=== PATIENT | female | born 1960 | race Caucasian/White ===

== ENCOUNTER 2016-09-11 13:25 | Inpatient (IN) | payer BC, OTHER ==
--- NOTE | 2016-09-11 14:21 | PDOC ---
History of Present Illness - General History Source: Patient Exam Limitations: No Limitations - History of Present Illness Initial Comments: 09/11/16 14:48 The patient is a 56 year old female, with a significant past medical history of GERD, HTN, HLD, pancreatitis, cystitis, anxiety and depression, who presents to the emergency department with abdominal pain and spitting blood today. She reports that she was brushing her teeth when she noticed bright red blood and decided to come to the ED for evaluation. Upon arriving at the ED, her abdominal pain began. She describes her abdominal pain as dull, ranging from mild to moderate, diffused across her abdomen, without radiation or modifying factors. She reports that she had a bowel movement today that was normal. She notes that she didnt look to see the color of the stool. She also notes that for the past 2 weeks she has been taking Naproxen and magnesium for migraines, for which she has taken a total of 5 tablets. The patient denies chest pain, shortness of breath, headache and dizziness. Denies fever, chills, nausea, vomit, diarrhea and constipation. Denies dysuria, frequency, urgency and hematuria. Allergies: iodinated contrast Past surgical history: (x2) Social history: No alcohol, tobacco or drug use reported GI - Dr. Michael <Kamaljit Olsen - Last Filed: 09/11/16 14:47> - General History Source: Patient, Old Records Exam Limitations: No Limitations <Gabbi Luna - Last Filed: 09/11/16 16:33> - General Chief Complaint: Pain Stated Complaint: EMPLOYEE, ABD PAIN Time Seen by Provider: 09/11/16 13:47 Past History <Kamaljit Olsen - Last Filed: 09/11/16 14:47> - Past Medical History Anemia: No Asthma: No Cancer: No Cardiac Disorders: No CVA: No COPD: No CHF: No Diabetes: No GI Disorders: Yes (H/O PANCREATITIS) Disorders: Yes (CYSTITIS) HTN: Yes Hypercholesterolemia: Yes Psychiatric Problems: Yes (ANXIETY,DEPRESSION) Seizures: No - Immunization History Td Vaccination: Yes TDAP Vaccination: Yes Immunization Up to Date: Yes - Psycho/Social/Smoking Cessation Hx Anxiety: Yes Suicidal Ideation: No Smoking Status: No Smoking History: Never smoked Have you smoked in the past 12 months: No Number of Cigarettes Smoked Daily: 0 Hx Alcohol Use: No Drug/Substance Use Hx: No Substance Use Type: None Hx Substance Use Treatment: No <Gabbi Luna - Last Filed: 09/11/16 16:33> - Past Medical History Allergies/Adverse Reactions: Allergies Allergy/AdvReac Type Severity Reaction Status Date / Time Iodinated Contrast Media - Allergy Verified 09/11/16 14:31 Oral and iodine [Iodine] Allergy Itching Verified 09/11/16 14:31 Home Medications: Ambulatory Orders Lurasidone HCl [Latuda -] 30 mg PO DAILY 03/05/16 Review of Systems - Review of Systems Able to Perform ROS?: Yes Comments:: 09/11/16 14:48 GENERAL/CONSTITUTIONAL: No fever or chills. No weakness. HEAD, EYES, EARS, NOSE AND THROAT: No change in vision. No ear pain or discharge. No sore throat. CARDIOVASCULAR: No chest pain or shortness of breath RESPIRATORY: No cough, wheezing, or hemoptysis. GASTROINTESTINAL: +Abdominal pain. Spitting blood. No nausea, vomiting, diarrhea or constipation. GENITOURINARY: No dysuria, frequency, or change in urination. MUSCULOSKELETAL: No joint or muscle swelling or pain. No neck or back pain. SKIN: No rash NEUROLOGIC: No headache, vertigo, loss of consciousness, or change in strength/ sensation. ENDOCRINE: No increased thirst. No abnormal weight change HEMATOLOGIC/LYMPHATIC: No anemia, easy bleeding, or history of blood clots. ALLERGIC/IMMUNOLOGIC: No hives or skin allergy. <Kamaljit Olsen - Last Filed: 09/11/16 14:47> *Physical Exam - Vital Signs Last Vital Signs Temp Pulse Resp BP Pulse Ox 98.2 F 71 20 131/76 99 09/11/16 13:36 09/11/16 13:36 09/11/16 13:36 09/11/16 13:36 09/11/16 13:36 - Physical Exam Comments: 09/11/16 14:47 GENERAL: Awake, alert, and fully oriented, in no acute distress HEAD: No signs of trauma, normocephalic, atraumatic EYES: PERRLA, EOMI, sclera anicteric, conjunctiva clear ENT: Auricles normal inspection, hearing grossly normal, nares patent, oropharynx clear without exudates. Moist mucosa NECK: Normal ROM, supple, no lymphadenopathy, JVD, or masses LUNGS: No distress, speaks full sentences, clear to auscultation bilaterally HEART: Regular rate and rhythm, normal S1 and S2, no murmurs, rubs or gallops, peripheral pulses normal and equal bilaterally. ABDOMEN: Soft, nontender, normoactive bowel sounds. No guarding, no rebound. No masses EXTREMITIES: Normal inspection, Normal range of motion, no edema. No clubbing or cyanosis. NEUROLOGICAL: Cranial nerves II through XII grossly intact. Normal speech, normal gait, no focal sensorimotor deficits SKIN: Warm, Dry, normal turgor, no rashes or lesions noted. RECTAL EXAM: Brown stool in rectal vault. <Kamaljit Olsen - Last Filed: 09/11/16 14:47> - Vital Signs Last Vital Signs Temp Pulse Resp BP Pulse Ox 98.2 F 71 20 131/76 99 09/11/16 13:36 09/11/16 13:36 09/11/16 13:36 09/11/16 13:36 09/11/16 13:36 <Gabbi Luna - Last Filed: 09/11/16 16:33> ED Treatment Course - LABORATORY CBC & Chemistry Diagram: 09/11/16 14:20 09/11/16 14:20 <Gabbi Luna - Last Filed: 09/11/16 16:33> Medical Decision Making - Medical Decision Making 09/11/16 14:32 56-year-old female with history of GERD, pancreatitis, and migraine headaches who presents to the emergency department with complaint of spitting blood after brushing her teeth and subsequent abdominal pain. Differential diagnosis includes but is not limited to: Bleeding gingiva, gingivitis, GERD, peptic ulcer disease, anemia. Plan: 1. Labs 2. Stool guaiac 3. Urine 4. Observe and reevaluate <Gabbi Luna - Last Filed: 09/11/16 16:33> *DC/Admit/Observation/Transfer - Attestations Scribe Attestion: 09/11/16 14:48 Documentation prepared by Kamaljit Olsen, acting as medical doctor nuclear medicine for Gabbi Luna MD <Kamaljit Olsen - Last Filed: 09/11/16 14:47> - Attestations Physician Attestion: 09/11/16 14:37 I, Dr. Gabbi Luna, attest that the scribes documentation that appears above has been prepared under my direction and personally reviewed by me in its entirety. I confirmed that the note above accurately reflects all work, treatment, procedures, and medical decision-making performed by me. <Gabbi Luna - Last Filed: 09/11/16 16:33> Diagnosis at time of Disposition: Bleeding gums
[2016-09-11 14:55] LABS: BASOPHIL 0.8 % (0-2.0); EOSINOPHIL 0.3 % (0-4.5); MCH 27.2 pg (25.7-33.7); MCHC 32.2 g/dl (32.0-36.0); MEAN CELL VOLUME 84.6 fl (80-96); MEAN PLT VOLUME 7.3 fl (7.5-11.1); NEUTROPHILS 55.6 % (42.8-82.8); PLATELET COUNT 278 K/MM3 (134-434); RDW 14.4 % (11.6-15.6); WHITE BLOOD COUNT 5.6 K/mm3 (4.0-10.0)
[2016-09-11 15:00] LABS: URINE APPEARANCE CLEAR; URINE BILIRUBIN NEGATIVE (NEGATIVE); URINE BLOOD NEGATIVE (NEGATIVE); URINE COLOR COLORLESS; URINE GLUCOSE (UA) NEGATIVE (NEGATIVE); URINE KETONE NEGATIVE (NEGATIVE); URINE LEUK ESTERASE NEGATIVE (NEGATIVE); URINE NITRITE NEGATIVE (NEGATIVE); URINE PROTEIN NEGATIVE (NEGATIVE); URINE UROBILINOGEN NEGATIVE E.U./dl (0.2-1.0)
[2016-09-11 15:23] LABS: ALBUMIN 4.2 g/dl (3.4-5.0); ALK PHOS 94 U/L (45-117); ANION GAP 7 (8-16); BILIRUBIN,TOTAL 0.3 mg/dL (0.2-1.0); CALCIUM 9.4 mg/dL (8.5-10.1); CO2 31 mmol/L (21-32); CREATININE 0.7 mg/dL (0.55-1.02); GLUCOSE,RANDOM 75 mg/dL (74-106); SGOT/AST 14 U/L (15-37); SGPT/ALT 17 U/L (12-78); TOT PROT 7.6 g/dl (6.4-8.2); TROPONIN I < 0.02 ng/ml (0.00-0.05)
[2016-09-11] MEDS ORDERED: SODIUM CHLORIDE 1,000 ML IV STA (16:09)
[2016-09-11] MEDS ORDERED: FAMOTIDINE 20 MG/50 ML IVPB 50 ML IVPB ONE ×2 (16:09→16:15)
--- NOTE | 2016-09-11 19:57 | PDOC ---
*Physical Exam - Vital Signs Last Vital Signs Temp Pulse Resp BP Pulse Ox 98.2 F 71 20 131/76 99 09/11/16 13:36 09/11/16 13:36 09/11/16 13:36 09/11/16 13:36 09/11/16 13:36 ED Treatment Course - LABORATORY CBC & Chemistry Diagram: 09/11/16 14:20 09/11/16 14:20 - ADDITIONAL ORDERS Additional order review: Laboratory Results 09/11/16 09/11/16 09/11/16 14:20 14:20 14:20 Sodium Potassium Chloride Carbon Dioxide Anion Gap BUN Creatinine Creat Clearance w eGFR Random Glucose Calcium Total Bilirubin AST ALT Alkaline Phosphatase Creatine Kinase 81 Troponin I < 0.02 Total Protein Albumin Lipase 439 H Urine Color Colorless Urine Appearance Clear Urine pH 6.0 Ur Specific [place] 1.004 Urine Protein Negative Urine Glucose (UA) Negative Urine Ketones Negative Urine Blood Negative Urine Nitrite Negative Urine Bilirubin Negative Urine Urobilinogen Negative Ur Leukocyte Esterase Negative Stool Occult Blood Negative 09/11/16 14:20 Sodium 140 Potassium 3.7 Chloride 102 Carbon Dioxide 31 Anion Gap 7 L BUN 13 D Creatinine 0.7 Creat Clearance w eGFR > 60 Random Glucose 75 Calcium 9.4 Total Bilirubin 0.3 D AST 14 L ALT 17 Alkaline Phosphatase 94 Creatine Kinase Troponin I Total Protein 7.6 Albumin 4.2 Lipase Urine Color Urine Appearance Urine pH Ur Specific [place] Urine Protein Urine Glucose (UA) Urine Ketones Urine Blood Urine Nitrite Urine Bilirubin Urine Urobilinogen Ur Leukocyte Esterase Stool Occult Blood 09/11/16 14:20 RBC 4.71 MCV 84.6 MCHC 32.2 RDW 14.4 MPV 7.3 L Neutrophils % 55.6 Lymphocytes % 38.5 Monocytes % 4.8 Eosinophils % 0.3 Basophils % 0.8 - RADIOLOGY Radiology Studies Ordered: Category Date Time Status CHEST PA & LAT [RAD] Stat Radiology 09/11/16 19:55 Ordered - Medications Given in the ED: ED Medications Discontinued Medications Generic Name Dose Route Start Last Admin Trade Name Freq PRN Reason Stop Dose Admin Famotidine/Sodium Chloride 50 mls @ 100 mls/hr 09/11/16 16:09 09/11/16 16:20 Pepcid 20 Mg Premixed Ivpb - IVPB 09/11/16 16:38 100 mls/hr ONCE ONE Administration Sodium Chloride 1,000 mls @ 1,000 mls/hr 09/11/16 16:09 09/11/16 16:20 Normal Saline - IV 09/11/16 17:08 1,000 mls/hr ASDIR STA Administration Medical Decision Making - Medical Decision Making 09/11/16 19:56 pt w persistent epigastric pain -ultrasound negative for acute cholecystitis -lipase 439 -no fever spoke w pt's GI doctor, Dr Javan Michael will do MRCP in morning -pt admitted for pain mgmt, antiemetics *DC/Admit/Observation/Transfer Diagnosis at time of Disposition: Epigastric abdominal pain, Elevated lipase Vomiting Qualifiers: Vomiting type: unspecified Vomiting Intractability: unspecified Nausea presence : with nausea Qualified Code(s): R11.2 - Nausea with vomiting, unspecified - Discharge Dispostion Admit: Yes
[2016-09-11] MEDS ORDERED: ONDANSETRON 4 MG/2 ML VIAL IVPUSH ONE (19:58)
[2016-09-11] MEDS ORDERED: HYDROmorphone HCL CARPU-JECT 1 MG/1 ML DISP.SYRIN IVPUSH ONE (19:58)
[2016-09-11] MEDS ORDERED: HYDROmorphone HCL CARPU-JECT 1 MG/1 ML DISP.SYRIN ONE (20:06)
[2016-09-11] MEDS ORDERED: ONDANSETRON 4 MG/2 ML VIAL ONE (20:07)
--- NOTE | 2016-09-11 21:03 | PN ---
<Claire Miller - Last Filed: 09/11/16 21:03> Teaching Attending Note Name of Resident: Adrian Menon ATTENDING PHYSICIAN STATEMENT I saw and evaluated the patient. I reviewed the resident's note and discussed the case with the resident. I agree with the resident's findings and plan as documented. SUBJECTIVE: OBJECTIVE: ASSESSMENT AND PLAN: <Geovanna Coker - Last Filed: 09/12/16 06:24> Teaching Attending Note ATTENDING PHYSICIAN STATEMENT I saw and evaluated the patient. I reviewed the resident's note and discussed the case with the resident. I agree with the resident's findings and plan as documented. SUBJECTIVE: The patient is a 56 yo F with a PMHx GERD, HTN, HLD, pancreatitis, cystitis, anxiety and depression, who presents with abdominal pain and spitting blood. Patient noticed blood while brushing teeth. Upon arrival to the ED, patient had diffuse abdominal pain, across her abdomen. Patient also has been taking naproxen for migraines for past two weeks with a total of 5 tablets. OBJECTIVE: Physical Last Vital Signs Temp Pulse Resp BP Pulse Ox 98.2 F 71 20 131/76 99 09/11/16 13:36 09/11/16 13:36 09/11/16 13:36 09/11/16 13:36 09/11/16 13:36 GEN: NAD HEENT: NCAT, PERRL CARD: RRR, S1 S2 RESP: CTAB ABD: NT, BWS x4. + mitchell epigastric pain on palpation EXT: - CCE CBCD WBC 5.6 K/mm3 (4.0-10.0) 09/11/16 14:20 RBC 4.71 M/mm3 (3.60-5.2) 09/11/16 14:20 Hgb 12.8 GM/dL (10.7-15.3) 09/11/16 14:20 Hct 39.8 % (32.4-45.2) 09/11/16 14:20 MCV 84.6 fl (80-96) 09/11/16 14:20 MCHC 32.2 g/dl (32.0-36.0) 09/11/16 14:20 RDW 14.4 % (11.6-15.6) 09/11/16 14:20 Plt Count 278 K/MM3 (134-434) 09/11/16 14:20 MPV 7.3 fl (7.5-11.1) L 09/11/16 14:20 CMP Sodium 140 mmol/L (136-145) 09/11/16 14:20 Potassium 3.7 mmol/L (3.5-5.1) 09/11/16 14:20 Chloride 102 mmol/L (98-107) 09/11/16 14:20 Carbon Dioxide 31 mmol/L (21-32) 09/11/16 14:20 Anion Gap 7 (8-16) L 09/11/16 14:20 BUN 13 mg/dL (7-18) D 09/11/16 14:20 Creatinine 0.7 mg/dL (0.55-1.02) 09/11/16 14:20 Creat Clearance w eGFR > 60 (>60) 09/11/16 14:20 Calcium 9.4 mg/dL (8.5-10.1) 09/11/16 14:20 Total Bilirubin 0.3 mg/dL (0.2-1.0) D 09/11/16 14:20 AST 14 U/L (15-37) L 09/11/16 14:20 ALT 17 U/L (12-78) 09/11/16 14:20 Alkaline Phosphatase 94 U/L (45-117) 09/11/16 14:20 Total Protein 7.6 g/dl (6.4-8.2) 09/11/16 14:20 Albumin 4.2 g/dl (3.4-5.0) 09/11/16 14:20 Imaging Abdomen US Impression: The partially visualized pancreas demonstrates no definite abnormality. No evidence of cholelithiasis. As on a previous ultrasound study of 01/19/2014 the common bile duct is slightly dilated with a 0.8 cm diameter. Stable 1.4 cm right hepatic lobe cyst. ASSESSMENT AND PLAN: The patient is a 56 yo F with a PMHx of GERD, HTN, HLD, pancreatitis, cystitis , anxiety and depression who presents with hemoptysis and abdominal pain. The patient is being admitted for gastritis and for MRCP in the am. 1.) Gastritis -H&H stable -Educate pt on stopping naproxen -PPI -GI on consult 2.) Elevated lipase -Questionable pancreatitis -MRCP in AM -As recommended by GI--GI on case 3.) Hemoptysis - Questionable probably from aggressive teeth brushing - Trend CBC - HH stable 4.) Bipolar disorder - Continue with home med 5.) DVT PPX - SCDs Admit to Med Surg
[2016-09-11] MEDS ORDERED: ONDANSETRON 4 MG/2 ML VIAL IVPB PRN (21:57)
[2016-09-11] MEDS ORDERED: morphine CARPU-JECT 2 MG/1 ML DISP.SYRIN IVPUSH PRN (21:59)
[2016-09-11] MEDS ORDERED: PANTOPRAZOLE SODIUM 40 MG in SODIUM CHLORIDE 100 ML IVPB SCH (22:00)
[2016-09-11] MEDS ORDERED: morphine CARPU-JECT 2 MG/1 ML DISP.SYRIN IVPUSH SCH (22:00)
[2016-09-11] MEDS ORDERED: DEXTROSE 5%-NORMAL SALINE 1,000 ML IV SCH (22:00)
--- NOTE | 2016-09-11 22:00 | HP ---
CHIEF COMPLAINT: Pain abdomen HISTORY OF PRESENT ILLNESS: 56 year old female, with a significant past medical history of GERD, HTN, pancreatitis, anxiety and depression, who presents to the emergency department with abdominal pain and spitting blood today. She reports that she was brushing her teeth when she noticed bright red blood and decided to come to the ED for evaluation.Blood was mixed with mucus and as per patient was coming from stomach it was mot mixed with saliva. She reports she has history of GERD and was on omeprazole which she stopped taking couple of months ago. She describes her abdominal pain as dull, burning in nature, ranging from mild to moderate, diffused across her abdomen, without radiation, pain increases with eating. She didn't check check color of stool . She also notes that for the past 2 weeks she has been taking Naproxen and magnesium for migraines, for which she has taken a total of 5 tablets. She denies chest pain, shortness of breath, headache and dizziness. Denies fever, chills, nausea, vomit , diarrhea and constipation. Denies dysuria, frequency, urgency and hematuria. GI - Dr. Michael ER course was notable for: (1) cbc, cmp , cxr (2) iv fluid (3) lipase Recent Travel: no PAST MEDICAL HISTORY: GERD, HTN, HLD, pancreatitis, anxiety and depression, PAST SURGICAL HISTORY: (x2) Social History: Smoking: Alcohol: Drugs: Family History: Allergies Iodinated Contrast Media - Oral and Allergy (Verified 09/11/16 14:31) iodine [Iodine] Allergy (Verified 09/11/16 14:31) Itching HOME MEDICATIONS: Home Medications Medication Instructions Recorded Lurasidone HCl [Latuda -] 30 mg PO DAILY 03/05/16 REVIEW OF SYSTEMS CONSTITUTIONAL: Absent: fever, chills, diaphoresis, generalized weakness, malaise, loss of appetite, weight change HEENT: Absent: rhinorrhea, nasal congestion, throat pain, throat swelling, difficulty swallowing, mouth swelling, ear pain, eye pain, visual changes CARDIOVASCULAR: Absent: chest pain, syncope, palpitations, irregular heart rate, lightheadedness , peripheral edema RESPIRATORY: Absent: cough, shortness of breath, dyspnea with exertion, orthopnea, wheezing, stridor, hemoptysis GASTROINTESTINAL: Absent: abdominal pain, abdominal distension, nausea, vomiting, diarrhea, constipation, melena, hematochezia GENITOURINARY: Absent: dysuria, frequency, urgency, hesitancy, hematuria, flank pain, genital pain MUSCULOSKELETAL: Absent: myalgia, arthralgia, joint swelling, back pain, neck pain SKIN: Absent: rash, itching, pallor HEMATOLOGIC/IMMUNOLOGIC: Absent: easy bleeding, easy bruising, lymphadenopathy, frequent infections ENDOCRINE: Absent: unexplained weight gain, unexplained weight loss, heat intolerance, cold intolerance NEUROLOGIC: Absent: headache, focal weakness or paresthesias, dizziness, unsteady gait, seizure, mental status changes, bladder or bowel incontinence PSYCHIATRIC: Absent: anxiety, depression, suicidal or homicidal ideation, hallucinations. PHYSICAL EXAMINATION Vital Signs - 24 hr 09/11/16 13:36 Temperature 98.2 F Pulse Rate 71 Respiratory 20 Rate Blood Pressure 131/76 O2 Sat by Pulse 99 Oximetry (%) GENERAL: Awake, alert, and fully oriented, in no acute distress. HEAD: Normal with no signs of trauma. EYES: Pupils equal, round and reactive to light, extraocular movements intact, sclera anicteric, conjunctiva clear. No lid lag. EARS, NOSE, THROAT: Ears normal, nares patent, oropharynx clear without exudates. Moist mucous membranes. NECK: Normal range of motion, supple without lymphadenopathy, JVD, or masses. LUNGS: Breath sounds equal, clear to auscultation bilaterally. No wheezes, and no crackles. No accessory muscle use. HEART: Regular rate and rhythm, normal S1 and S2 without murmur, rub or gallop. ABDOMEN: Soft, mild tenderness in epigastric area tender, not distended, normoactive bowel sounds, no guarding, no rebound, no masses. No hepatomegaly or splenomegaly. MUSCULOSKELETAL: Normal range of motion at all joints. No bony deformities or tenderness. No CVA tenderness. UPPER EXTREMITIES: 2+ pulses, warm, well-perfused. No cyanosis. No clubbing. Cap refill <2 seconds. No peripheral edema. LOWER EXTREMITIES: 2+ pulses, warm, well-perfused. No calf tenderness. No peripheral edema. NEUROLOGICAL: Cranial nerves II-XII intact. Normal speech. Normal gait. PSYCHIATRIC: Cooperative. Good eye contact. Appropriate mood and affect. SKIN: Warm, dry, normal turgor, no rashes or lesions noted. Laboratory Results - last 24 hr 09/11/16 09/11/16 09/11/16 14:20 14:20 14:20 WBC 5.6 RBC 4.71 Hgb 12.8 Hct 39.8 MCV 84.6 MCHC 32.2 RDW 14.4 Plt Count 278 MPV 7.3 L Neutrophils % 55.6 Lymphocytes % 38.5 Monocytes % 4.8 Eosinophils % 0.3 Basophils % 0.8 Sodium 140 Potassium 3.7 Chloride 102 Carbon Dioxide 31 Anion Gap 7 L BUN 13 D Creatinine 0.7 Creat Clearance w eGFR > 60 Random Glucose 75 Calcium 9.4 Total Bilirubin 0.3 D AST 14 L ALT 17 Alkaline Phosphatase 94 Creatine Kinase Troponin I Total Protein 7.6 Albumin 4.2 Lipase Urine Color Urine Appearance Urine pH Ur Specific [place] Urine Protein Urine Glucose (UA) Urine Ketones Urine Blood Urine Nitrite Urine Bilirubin Urine Urobilinogen Ur Leukocyte Esterase Stool Occult Blood Negative 09/11/16 09/11/16 14:20 14:20 WBC RBC Hgb Hct MCV MCHC RDW Plt Count MPV Neutrophils % Lymphocytes % Monocytes % Eosinophils % Basophils % Sodium Potassium Chloride Carbon Dioxide Anion Gap BUN Creatinine Creat Clearance w eGFR Random Glucose Calcium Total Bilirubin AST ALT Alkaline Phosphatase Creatine Kinase 81 Troponin I < 0.02 Total Protein Albumin Lipase 439 H Urine Color Colorless Urine Appearance Clear Urine pH 6.0 Ur Specific [place] 1.004 Urine Protein Negative Urine Glucose (UA) Negative Urine Ketones Negative Urine Blood Negative Urine Nitrite Negative Urine Bilirubin Negative Urine Urobilinogen Negative Ur Leukocyte Esterase Negative Stool Occult Blood Current Medications Generic Name Dose Route Start Last Admin Trade Name Freq PRN Reason Stop Dose Admin Sodium Chloride 1,000 mls @ 83 mls/hr 09/11/16 22:15 Normal Saline - IV ASDIR [facility] Lurasidone HCl 30 mg 09/12/16 10:00 Latuda - PO DAILY [facility] Morphine Sulfate 2 mg 09/11/16 21:59 Morphine Injection - IVPUSH Q6H PRN PAIN Ondansetron HCl 4 mg 09/11/16 21:57 Zofran Injection IVPB Q4H PRN NAUSEA AND/OR VOMITING Pantoprazole Sodium 40 mg 09/11/16 22:15 Protonix 40mg Ivpb (Pre-Docked) IVPB BID [facility] ASSESSMENT/PLAN: 56 year old female, with a significant past medical history of GERD, HTN, HLD, pancreatitis, cystitis, anxiety and depression, who presents to the emergency department with abdominal pain. Pain abdomen: gastritis vs early pancreatitis ( less likely from pancreatitis ) NPO IV fluid MNS at 83 ml/hr IV rotonix 40 mg iv bid Zofarn Iv prn for nausea Morphine IV prn for pain monitor vitals Gastro consult Follow MRCP GERD on IV protonix BID HTN: controlled not on medication Depression continue home med latuda 30 mg daily Fluid : NS 83 ml/hr electrolyte: follow in am nutrition : NPO for now Dvt pro : scd b/l gi pro : on protonix Dispo: admit med surg Visit type - Emergency Visit Emergency Visit: Yes ED Registration Date: 09/11/16 Care time: The patient presented to the Emergency Department on the above date and was hospitalized for further evaluation of their emergent condition. - New Patient This patient is new to me today: Yes Date on this admission: 09/12/16 - Critical Care Critical Care patient: No
[2016-09-11] MEDS ORDERED: PANTOPRAZOLE SODIUM 40 MG VIAL ONE (22:09)
[2016-09-11] MEDS: PANTOPRAZOLE SODIUM 40 MG/100 ML PRE-DOCKED IVPB SCH (22:20)
[2016-09-11] MEDS: SODIUM CHLORIDE 1,000 ML IV SCH ×2 (22:20→23:11)
--- NOTE | 2016-09-11 23:09 | MSN ---
Admitting History and Physical - Admission Chief Complaint: bleeding from mouth and abdominal pain History of Present Illness: 56 yo female with pmhx of GERD, HTN, HLD, pancreatits, hiatal hernia, cystits, anxiety and depression presnts with blood coming from her mouth she noticed while she was brushing her teeth. around the same time she began to experience abdominal pain. She states induced vomiting one time to see if the blood was coming from the stomach. She pain is described as intermittent and located primarily in her epigastric region but complains of diffuse pain. She has never had this before. The pain does not radiate anywhere. Eating food does not make the pain worse or better. She has not noticed a change in her bowels but says she is usually constipated. She has been taking naproxen for migraines but says she only takes about 5 pills a month. She says she was taking omeprazole but stopped 6 months ago because she says the side effects worried her. She denies headache, changes in vision, weakness, dark stools, frequency with urination. 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 Cardiovascular: Yes: HTN, Hyperlipdemia Gastrointestinal: Yes: GERD, Pancreatitis Renal/: Yes: Other (cystitis) Psych: Yes: Anxiety, Depression - Past Surgical History Past Surgical History: Yes: (X2) - Smoking History Smoking history: Never smoked Have you smoked in the past 12 months: No Aproximately how many cigarettes per day: 0 - Alcohol/Substance Use Hx Alcohol Use: No Home Medications - Allergies Allergies/Adverse Reactions: Allergies Allergy/AdvReac Type Severity Reaction Status Date / Time Iodinated Contrast Media - Allergy Verified 09/11/16 14:31 Oral and iodine [Iodine] Allergy Itching Verified 09/11/16 14:31 - Home Medications Home Medications: Ambulatory Orders Lurasidone HCl [Latuda -] 30 mg PO DAILY 03/05/16 Review of Systems - Review of Systems Constitutional: reports: No Symptoms Eyes: reports: No Symptoms HENT: reports: No Symptoms Cardiovascular: reports: No Symptoms Gastrointestinal: reports: Abdominal Pain Genitourinary: reports: No Symptoms Musculoskeletal: reports: Back Pain Neurological: reports: No Symptoms Physical Examination Vital Signs: Vital Signs Temperature 97.9 F 09/11/16 22:48 Pulse Rate 65 09/11/16 22:48 Respiratory Rate 20 09/11/16 22:48 Blood Pressure 147/66 09/11/16 22:48 O2 Sat by Pulse Oximetry (%) 100 09/11/16 22:03 Constitutional: Yes: Well Nourished, No Distress, Calm Eyes: Yes: WNL, Conjunctiva Clear, EOM Intact HENT: Yes: Atraumatic Cardiovascular: Yes: WNL, Regular Rate and Rhythm, S1, S2 Respiratory: Yes: WNL, Regular, CTA Bilaterally Gastrointestinal: Yes: Normal Bowel Sounds, Soft, Tenderness, Tenderness, Epigastrium Musculoskeletal: Yes: Back Pain Extremities: Yes: WNL Edema: No Neurological: Yes: WNL, Alert, Oriented Imaging - Results Chest X-ray: Pending Ultrasound: Report Reviewed (dilated CBD and hepatic cyst but both unchanged from previous imaging studies-no acute pathology) EKG: Image Reviewed (sinus bradycardia) Assessment/Plan 56 yo female with pmhx of GERD, HTN, HLD, pancreatits, hiatal hernia, cystits, anxiety and depression presnts with acute gastritis acute gastritis -NPO -NS -GI consulted-mcrp tomorrow -morphine for pain management -protonix -H&H stable -zofran for nausea pancreatitis -lipase 423 -monitor symptoms -protonix -zofran for nausea HTN -not on home meds depression -continue home meds 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
[2016-09-12 00:05] VITALS: BMI 24.5
[2016-09-12 06:54] LABS: BASOPHIL 0.9 % (0-2.0); EOSINOPHIL 0.7 % (0-4.5); MCHC 32.2 g/dl (32.0-36.0); MEAN CELL VOLUME 83.8 fl (80-96); MEAN PLT VOLUME 7.4 fl (7.5-11.1); NEUTROPHILS 48.9 % (42.8-82.8); PLATELET COUNT 252 K/MM3 (134-434); RDW 14.5 % (11.6-15.6); WHITE BLOOD COUNT 4.9 K/mm3 (4.0-10.0)
[2016-09-12 07:26] LABS: ALBUMIN 3.6 g/dl (3.4-5.0); ALK PHOS 81 U/L (45-117); ANION GAP 9 (8-16); BILIRUBIN,TOTAL 0.4 mg/dL (0.2-1.0); CALCIUM 8.7 mg/dL (8.5-10.1); CO2 27 mmol/L (21-32); CREATININE 0.6 mg/dL (0.55-1.02); GLUCOSE,RANDOM 66 mg/dL (74-106); MAGNESIUM 2.2 mg/dL (1.8-2.4); PHOSPHOROUS 3.9 mg/dL (2.5-4.9); SGOT/AST 12 U/L (15-37); SGPT/ALT 14 U/L (12-78); TOT PROT 6.3 g/dl (6.4-8.2)
[2016-09-12] MEDS: PANTOPRAZOLE SODIUM 40 MG/100 ML PRE-DOCKED IVPB SCH (09:09)
[2016-09-12] MEDS: SODIUM CHLORIDE 1,000 ML IV SCH (11:21)
[2016-09-12] MEDS: LURASIDONE HCL 20 MG TABLET PO SCH (11:39)
--- NOTE | 2016-09-12 14:14 | EKG ---
Test Reason : Blood Pressure : / mmHG Vent. Rate : 056 BPM Atrial Rate : 056 BPM P-R Int : 140 ms QRS Dur : 086 ms QT Int : 446 ms P-R-T Axes : 063 045 038 degrees QTc Int : 430 ms SINUS BRADYCARDIA POSSIBLE LEFT ATRIAL ENLARGEMENT BORDERLINE ECG WHEN COMPARED WITH ECG OF 16-NOV-2013 04:42, T WAVE INVERSION NOW EVIDENT IN ANTERIOR LEADS Confirmed by DIANE PADILLA, MARYSOL ([id number]) on 09/12/2016 2:13:36 PM Referred By: Confirmed By:MARYSOL CONTRERAS MD
--- NOTE | 2016-09-12 14:29 | PN ---
Teaching Attending Note Name of Resident: Kamari Desai ATTENDING PHYSICIAN STATEMENT I saw and evaluated the patient. I reviewed the resident's note and discussed the case with the resident. I agree with the resident's findings and plan as documented. SUBJECTIVE: OBJECTIVE: ASSESSMENT AND PLAN: 56 year old female, with a significant past medical history of GERD, HTN, pancreatitis, anxiety and depression admitted for possible upper GI bleed -pt states she vomitted small amount of blood but has had no further bleeding since -Hb is stable -follow up consult by her private GI attending -unsure as to why MRCP was ordered but will follow up
--- NOTE | 2016-09-12 15:43 | PN ---
Physical Exam: SUBJECTIVE: Patient seen and examined at bed side. pateitn feeling better with mild epigastric pain. patient reports pain was 7/10 two day sago and no wis 4/ 10. patient reports regurgitating food the day prior. noticed small amount of blood in mouth, then induced vomit and more blood 1/4 cup full bright red. denies any bleeding gums or oral lesions. denies, fevers, chills, nausea, vomiting, cp, sob. patient has no History of HTn, DM and not on medications. nurse called, patient hypoglycemia symptomatic, having had blood glucose 66 morning labs, patient symptoms resolved after drinking Josefa charles. OBJECTIVE: Vital Signs Period Temp Pulse Resp BP Sys/Medrano Pulse Ox Last 24 Hr 97.9 F-98.7 F 56-65 18-22 107-147/41-75 98-100 GENERAL: The patient is awake, alert, and fully oriented, in no acute distress. HEAD: Normal with no signs of trauma. EYES: extraocular movements intact, sclera anicteric, conjunctiva clear. No ptosis. ENT: Ears normal, nares patent, oropharynx clear without exudates or lesions or blood, moist mucous membranes. NECK: Trachea midline, full range of motion, supple. LUNGS: Breath sounds equal, clear to auscultation bilaterally, no wheezes, no crackles, no accessory muscle use. HEART: Regular rate and rhythm, S1, S2 without murmur, rub or gallop. ABDOMEN: Soft, mild tender epigastric area, nondistended, normoactive bowel sounds, no guarding, no rebound, no hepatosplenomegaly, no masses. EXTREMITIES: 2+ pulses, warm, well-perfused, no edema. NEUROLOGICAL: Normal speech, gait not observed. PSYCH: Normal mood, normal affect. SKIN: Warm, dry, normal turgor, no rashes or lesions noted Laboratory Results - last 24 hr 09/12/16 09/12/16 05:55 05:55 WBC 4.9 RBC 4.31 Hgb 11.6 Hct 36.1 MCV 83.8 MCHC 32.2 RDW 14.5 Plt Count 252 MPV 7.4 L Neutrophils % 48.9 Lymphocytes % 43.9 H Monocytes % 5.6 Eosinophils % 0.7 D Basophils % 0.9 Sodium 142 Potassium 4.0 Chloride 106 Carbon Dioxide 27 Anion Gap 9 BUN 10 D Creatinine 0.6 Creat Clearance w eGFR > 60 Random Glucose 66 L Calcium 8.7 Phosphorus 3.9 Magnesium 2.2 Total Bilirubin 0.4 D AST 12 L ALT 14 Alkaline Phosphatase 81 Total Protein 6.3 L Albumin 3.6 Active Medications Generic Name Dose Route Start Last Admin Trade Name Freq PRN Reason Stop Dose Admin Sodium Chloride 1,000 mls @ 83 mls/hr 09/11/16 22:15 09/12/16 11:21 Normal Saline - IV 83 mls/hr ASDIR GERI Administration Lurasidone HCl 30 mg 09/12/16 10:00 09/12/16 11:39 Latuda - PO Not Given DAILY GERI Morphine Sulfate 2 mg 09/11/16 21:59 Morphine Injection - IVPUSH Q6H PRN PAIN Ondansetron HCl 4 mg 09/11/16 21:57 Zofran Injection IVPB Q4H PRN NAUSEA AND/OR VOMITING Pantoprazole Sodium 40 mg 09/11/16 22:15 09/12/16 09:09 Protonix 40mg Ivpb (Pre-Docked) IVPB 40 mg BID GERI Administration ASSESSMENT/PLAN: Pain abdomen: gastritis vs early pancreatitis ( less likely from pancreatitis ) , -one episode induced vomiting small amount of blood but has had no further bleeding since, she reports having blood in mouth prior to inducing vomit. -Hb is stable IV fluid MNS at 83 ml/hr IV protonix 40 mg iv bid Zofarn Iv prn for nausea Morphine IV prn for pain monitor vitals GI consult- private patient Follow MRCP HYpoglycemia: no documented diabetic and is not on diabetes medications. -will check HBA1c * Obtain blood glucose concentration as soon as possible when patient is symptomatic -If the glucose is low (<55 mg/dL) and the patient is a not a diabetic, draw blood for glucose, insulin, C-peptide, and an oral hypoglycemic agent screen and then treat, * Do not delay treatment if symptomatic hypoglycemia is suspected but rapid blood glucose measurement is not available or blood for diagnostic studies cannot be collected. * Give oral sugar drink or oral glucose. GERD on IV protonix BID Depression continue home med latuda 30 mg daily Fluid : NS 83 ml/hr electrolyte: follow in am nutrition : Clear liquids Dvt pro : scd b/l gi pro : on protonix Dispo: admit med surg Visit type - Emergency Visit Emergency Visit: Yes ED Registration Date: 09/11/16 Care time: The patient presented to the Emergency Department on the above date and was hospitalized for further evaluation of their emergent condition. - New Patient This patient is new to me today: Yes Date on this admission: 09/11/16 - Critical Care Critical Care patient: No
--- NOTE | 2016-09-12 18:41 | CON.GI ---
Consult Consult Specialty:: Gastroenterology Referred by:: hospitalist - History of Present Illness Chief Complaint: abdominal pain and elevated lipase History of Present Illness: Amanda is a 56-year-old female who is a long-standing patient of mine. Last time I saw her in the office was a few years ago. She also has a history of anxiety and depression. She is a history of nonerosive reflux disease. She was taking omeprazole up to a few months ago. In the morning she was brushing her teeth and noticed some blood in her mouth period. She thought it was from her stomach so she came to the emergency room. She also thought it was related to some epigastric pain that she was having. She was recently been taking Naprosyn or other NSAIDs.. In the emergency room laboratory testing was done to reveal no anemia. And also mildly elevated lipase. A sonogram suggested an abnormal gallbladder. Her liver functions were normal. Her bowel movements were normal without evidence of melena or rectal bleeding. This morning her abdomen is without tenderness. Currently she is n.p.o. and we are waiting for a MRCP MRI to evaluate her pancreas. 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: Yes: Migraine Cardio/Vascular: Yes: HTN, Hyperlipdemia Gastrointestinal: Yes: GERD, Pancreatitis Renal/: Yes: Other (cystitis) Psych: Yes: Anxiety, Depression - Past Surgical History Past Surgical History: Yes: Colonoscopy, (X2), Upper Endoscopy - Alcohol/Substance Use Hx Alcohol Use: No - Smoking History Smoking history: Never smoked Have you smoked in the past 12 months: No Aproximately how many cigarettes per day: 0 Home Medications - Allergies Allergies/Adverse Reactions: Allergies Allergy/AdvReac Type Severity Reaction Status Date / Time Iodinated Contrast Media - Allergy Verified 09/11/16 14:31 Oral and iodine [Iodine] Allergy Itching Verified 09/11/16 14:31 - Home Medications Home Medications: Ambulatory Orders Lurasidone HCl [Latuda -] 30 mg PO DAILY 03/05/16 Family Disease History - Family Disease History Family History: Unremarkable Review of Systems - Review of Systems Constitutional: reports: No Symptoms Eyes: reports: No Symptoms HENT: reports: Other ( Blood in mouth) Neck: reports: No Symptoms Cardiovascular: reports: No Symptoms Respiratory: reports: No Symptoms Gastrointestinal: reports: Abdominal Pain, Other ( epigastric pain) Genitourinary: reports: No Symptoms Musculoskeletal: reports: No Symptoms Integumentary: reports: No Symptoms Neurological: reports: No Symptoms Endocrine: reports: No Symptoms Hematology/Lymphatic: reports: No Symptoms Psychiatric: reports: No Symptoms Physical Exam-GI Vital Signs: Vital Signs Temperature 98.5 F 09/12/16 14:10 Pulse Rate 65 09/12/16 14:10 Respiratory Rate 18 09/12/16 14:10 Blood Pressure 113/61 09/12/16 14:10 O2 Sat by Pulse Oximetry (%) 98 09/12/16 09:00 Constitutional: Yes: Well Nourished, No Distress, Calm Eyes: Yes: Conjunctiva Clear HENT: Yes: Normocephalic Neck: Yes: Trachea Midline Cardiovascular: Yes: Regular Rate and Rhythm Respiratory: Yes: CTA Bilaterally ...Auscultate: Yes: Normoactive Bowel Sounds ...Palpate: Yes: Soft ...Rectal Exam: Yes: Guaiac Negative Extremities: Yes: WNL Neurological: Yes: WNL Psychiatric: Yes: WNL Labs: CBC, BMP 09/12/16 05:55 09/12/16 05:55 Imaging - Results Ultrasound: Image Reviewed MRI: Image Reviewed Problem List - Problems (1) Elevated lipase Assessment/Plan: I did not see current etiology for elevation in her lipase. This may be a low- grade pancreatitis for whatever reason. Imaging studies however show a normal pancreatic gland. The pancreatic duct is also normal. There is no history of drinking is no history of gallstones. Would advance her diet if tolerated can she can be discharged. Code(s): R74.8 - ABNORMAL LEVELS OF OTHER SERUM ENZYMES (2) Abnormal MRI, liver Assessment/Plan: The MRI shows an abnormal common hepatic duct which was read as probable artifact. Her lab work is normal. Her liver tests are normal. She has no family history of liver disease or bile duct cancers. Further workup can be done as an outpatient. That would include repeat MRI of the liver in 3 months or a ERCP. I will send off a CA-19-9. Code(s): R93.2 - ABNORMAL FINDINGS ON DX IMAGING OF LIVER AND BILIARY TRACT (3) Abdominal pain Assessment/Plan: I believe her abdominal pain was related to the NSAIDs. She should be placed back on her proton pump inhibitor for 3 weeks and then these should be discontinued she should avoid using NSAIDs in the future. She should make a follow-up appointment my office for a repeat upper endoscopy. The patient tolerates diet without abdominal pain nausea vomiting there is no GI objection to discharging the patient today. Code(s): R10.9 - UNSPECIFIED ABDOMINAL PAIN (4) Anxiety and depression Code(s): F41.8 - OTHER SPECIFIED ANXIETY DISORDERS (5) Bleeding gums Code(s): K06.8 - OTH DISRD OF GINGIVA AND EDENTULOUS ALVEOLAR RIDGE
[2016-09-13] MEDS: SODIUM CHLORIDE 1,000 ML IV SCH (04:48)
--- NOTE | 2016-09-13 06:39 | DS ---
Physical Exam: ATTENDING PHYSICIAN STATEMENT I saw and evaluated the patient. I reviewed the resident's note and discussed the case with the resident. I agree with the resident's findings and plan as documented. SUBJECTIVE: seen and evaluated at the bedside OBJECTIVE: mild mid-epigastric pain ASSESSMENT AND PLAN: 56 year old female, with a significant past medical history of GERD, HTN, pancreatitis, anxiety and depression admitted for possible upper GI bleed -pt states she vomitted small amount of blood but has had no further bleeding since -Hb is stable -consult by her private GI attending appreciated; for follow up in his office as an outpatient <Curt Blair - Last Filed: 09/13/16 08:49> Physical Exam: SUBJECTIVE: Patient seen and examined at bed side. no current epigastric or QUQ pain. patient has chronic suprapubic pain that is being followed and treated for interstitial cystitis. no more episodes of blood in mouth. patient feeling well. denies fever, chills, N/V/D/C. passing gas, voiding. cleared by GI, if tolerates diet can be discharged. OBJECTIVE: Vital Signs Period Temp Pulse Resp BP Sys/Medrano Pulse Ox Last 24 Hr 98.4 F-98.7 F 59-65 18-20 107-130/41-71 97-98 PHYSICAL EXAM GENERAL: The patient is awake, alert, and fully oriented, in no acute distress. HEAD: Normal with no signs of trauma. EYES: extraocular movements intact, sclera anicteric, conjunctiva clear. No ptosis. ENT: Ears normal, nares patent, oropharynx clear without exudates or lesions or blood, moist mucous membranes. NECK: Trachea midline, full range of motion, supple. LUNGS: Breath sounds equal, clear to auscultation bilaterally, no wheezes, no crackles, no accessory muscle use. HEART: Regular rate and rhythm, S1, S2 without murmur, rub or gallop. ABDOMEN: Soft, non tender, nondistended, normoactive bowel sounds, no guarding, no rebound, no hepatosplenomegaly, no masses. EXTREMITIES: 2+ pulses, warm, well-perfused, no edema. NEUROLOGICAL: Normal speech, gait not observed. PSYCH: Normal mood, normal affect. SKIN: Warm, dry, normal turgor, no rashes or lesions noted LABS Laboratory Results - last 24 hr 09/12/16 09/12/16 09/12/16 05:55 05:55 16:46 WBC 4.9 RBC 4.31 Hgb 11.6 Hct 36.1 MCV 83.8 MCHC 32.2 RDW 14.5 Plt Count 252 MPV 7.4 L Neutrophils % 48.9 Lymphocytes % 43.9 H Monocytes % 5.6 Eosinophils % 0.7 D Basophils % 0.9 Sodium 142 Potassium 4.0 Chloride 106 Carbon Dioxide 27 Anion Gap 9 BUN 10 D Creatinine 0.6 Creat Clearance w eGFR > 60 POC Glucometer 63 Random Glucose 66 L Calcium 8.7 Phosphorus 3.9 Magnesium 2.2 Total Bilirubin 0.4 D AST 12 L ALT 14 Alkaline Phosphatase 81 Total Protein 6.3 L Albumin 3.6 09/13/16 09/13/16 00:34 01:19 WBC RBC Hgb Hct MCV MCHC RDW Plt Count MPV Neutrophils % Lymphocytes % Monocytes % Eosinophils % Basophils % Sodium Potassium Chloride Carbon Dioxide Anion Gap BUN Creatinine Creat Clearance w eGFR POC Glucometer 65 94 Random Glucose Calcium Phosphorus Magnesium Total Bilirubin AST ALT Alkaline Phosphatase Total Protein Albumin HOSPITAL COURSE: Date of Admission:09/11/16 Date of Discharge: 09/13/16 56 year old female, with a significant past medical history of GERD, HTN, pancreatitis, anxiety and depression, who presents to the emergency department with abdominal pain and spitting blood today. She reports that she was brushing her teeth when she noticed bright red blood and decided to come to the ED for evaluation.Blood was mixed with mucus and as per patient was coming from stomach it was mot mixed with saliva. She reports she has history of GERD and was on omeprazole which she stopped taking couple of months ago. She describes her abdominal pain as dull, burning in nature, ranging from mild to moderate, diffused across her abdomen, without radiation, pain increases with eating. She didn't check check color of stool . She also notes that for the past 2 weeks she has been taking Naproxen and magnesium for migraines, for which she has taken a total of 5 tablets. She denies chest pain, shortness of breath, headache and dizziness. Denies fever, chills, nausea, vomit, diarrhea and constipation. Denies dysuria, frequency, urgency and hematuria. GI - Dr. Fernanda reynaga had mild elevation in lipase in 439,not see current etiology for elevation in her lipase. This may be a low-grade pancreatitis for whatever reason. Imaging studies however show a normal pancreatic gland. The pancreatic duct is also normal. There is no history of drinking is no history of gallstones. The MRI shows an abnormal common hepatic duct which was read as probable artifact. Her lab work is normal. Her liver tests are normal. She has no family history of liver disease or bile duct cancers. Further workup can be done as an outpatient. That would include repeat MRI of the liver in 3 months or a ERCP. I will send off a CA-19-9. Abdominal pain probably related to related to the NSAIDs. we placed back on her proton pump inhibitor for 3 weeks and then these should be discontinued. instructed to avoid using NSAIDs in the future. instructed her follow-up appointment with GI office for a repeat upper endoscopy. hypoglycemia while patient was on NPO. instructed her on the awareness of symptoms and the treatment. Bleeding gums, unsepciefied possible secondary to trauma to tooth brush Patient stable discharged home, vitals stable., currently no abd pain , no sign of bleeding. Minutes to complete discharge: 35 <Kamari Desai - Last Filed: 09/13/16 10:41> Discharge Summary Current Active Problems Abnormal MRI, liver (Acute) Anxiety disorder (Acute) Elevated lipase (Acute) - Home Medications Comprehensive Discharge Medication List: Ambulatory Orders Lurasidone HCl [Latuda -] 30 mg PO DAILY 03/05/16 <Curt Blair - Last Filed: 09/13/16 08:49> Reason For Visit: EPIGASTRIC PAIN, INCREASED SERUM LIAPSE LEVEL, VOM Current Active Problems Abnormal MRI, liver (Acute) Elevated lipase (Acute) Epigastric abdominal pain (Acute) Vomiting (Acute) - Home Medications Comprehensive Discharge Medication List: Ambulatory Orders Lurasidone HCl [Latuda -] 30 mg PO DAILY 03/05/16 <Kamari Desai - Last Filed: 09/13/16 10:41> Condition: Stable - Instructions Diet, Activity, Other Instructions: Please call Respiratory Department EXT. [phone] to Schedule Sleep Consultation appointment for Patient. You are being discharged home. Please call and follow up with your primary care provider in one week to assess your health. Please call and follow up with GI DR. da silva in 2 week. Please avoid taking NSAIDs, smoking, alcohol. please take proton pump inhibitor for 3 weeks and then discontinue. You should make a follow-up appointment in dr hussein office for a repeat upper endoscopy. Please take your medications as directed. Please reports to the ER or the nearest ER if you have any persistent and worsening symptoms, chest pain, palpitation, fevers, chills, night sweats, Nausea, Vomiting, severe headache dizziness or loss of consciousness. Disposition: HOME This patient is new to me today: Yes Date on this admission: 09/13/16 Emergency Visit: No Critical Care patient: No - Discharge Referral Referred to [facility] No <Kamari Desai - Last Filed: 09/13/16 10:41>
[2016-09-13] MEDS ORDERED: PT OWN MED DRAWER 7, Y5N ONE (09:43)
[2016-09-13] MEDS ORDERED: PANTOPRAZOLE 40 MG TABLET (FP) PO SCH (10:00)
[2016-09-13] MEDS: LURASIDONE HCL 20 MG TABLET PO SCH (10:17)
[2016-09-13 10:21] VITALS: BP 130/73; PULSE 63; TEMP 98.4
== END 2016-09-13 11:45 | disposition home or self-care (01) | DRG 392 ==
LOC: JER 13:25 → J5S 20:13
PROVIDERS: ADMIT Internal Medicine; ATTEND Internal Medicine
DX: K29.00 Acute gastritis without bleeding (principal); K21.9 Gastro-esophageal reflux disease without esophagitis; I10 Essential (primary) hypertension; E78.5 Hyperlipidemia, unspecified; F41.9 Anxiety disorder, unspecified; F32.9 Major depressive disorder, single episode, unspecified; G43.909 Migraine, unspecified, not intractable, without status migrainosus; K44.9 Diaphragmatic hernia without obstruction or gangrene; E16.2 Hypoglycemia, unspecified; R93.2 Abnormal findings on diagnostic imaging of liver and biliary tract; K06.8 Other specified disorders of gingiva and edentulous alveolar ridge; T39.395A Adverse effect of other nonsteroidal anti-inflammatory drugs [NSAID], initial encounter
CPT/HCPCS: 36415; 71020-TC; 74181-TC; 76700-TC; 80053; 81003; 82272; 82550; 83690; 83735; 84100; 84484; 85025; 86301; 93005; 93010; 99282-25

== ENCOUNTER 2017-06-13 15:56 | Emergency (ER) | payer OTHER, BC ==
[2017-06-13 16:11] VITALS: BP 147/87; PULSE 74; TEMP 98.2; BMI 26.3
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
[2017-06-13] MEDS ORDERED: KETOROLAC TROMETHAMINE 60 MG/2 ML VIAL IM ONE (18:03)
[2017-06-13] MEDS ORDERED: KETOROLAC TROMETHAMINE 60 MG/2 ML VIAL ONE (18:14)
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
[2017-06-13 18:17] LABS: URINE APPEARANCE CLEAR; URINE BILIRUBIN NEGATIVE (NEGATIVE); URINE BLOOD 1+ (NEGATIVE); URINE COLOR LTYELLOW; URINE GLUCOSE (UA) NEGATIVE (NEGATIVE); URINE KETONE NEGATIVE (NEGATIVE); URINE NITRITE NEGATIVE (NEGATIVE); URINE PROTEIN NEGATIVE (NEGATIVE); URINE UROBILINOGEN NEGATIVE mg/dL (0.2-1.0)
[2017-06-13 20:49] LABS: URINE MUCUS RARE; URINE RBC 7 /hpf (0-3); URINE WBC 8 /hpf (3-5)
[2017-06-14 12:54] LABS: URINE LEUK ESTERASE 1+ (NEGATIVE)
== END 2017-06-13 19:25 | disposition home or self-care (01) ==
LOC: JERFT 15:56
PROC: 3E0233Z Introduction of Anti-inflammatory into Muscle, Percutaneous Approach (ICD-10-PCS; principal; 2017-06-13)
DX: S16.1XXA Strain of muscle, fascia and tendon at neck level, initial encounter (principal); S39.012A Strain of muscle, fascia and tendon of lower back, initial encounter; Y04.8XXA Assault by other bodily force, initial encounter; Y93.89 Activity, other specified; Y92.238 Other place in hospital as the place of occurrence of the external cause; Y99.0 Civilian activity done for income or pay; I10 Essential (primary) hypertension; E78.00 Pure hypercholesterolemia, unspecified
CPT/HCPCS: 72050-TC; 72100-TC; 81003; 81015; 99281-25

== ENCOUNTER 2017-10-02 21:01 | Emergency (ER) | payer BC ==
[2017-10-02 21:06] VITALS: BP 141/93; PULSE 75; TEMP 98.2; BMI 26.3
--- NOTE | 2017-10-02 22:00 | PDOC ---
*Physical Exam - Vital Signs Last Vital Signs Temp Pulse Resp BP Pulse Ox 98.2 F 75 20 141/93 99 10/02/17 21:05 10/02/17 21:05 10/02/17 21:05 10/02/17 21:05 10/02/17 21:05 - Physical Exam Comments: 10/02/17 22:00 The patient was examined by [DEWAYNE Sanderson] under my direct supervision. I personally evaluated the patient. I concur with the above findings and the plan of care.
--- NOTE | 2017-10-02 22:17 | PDOC ---
History of Present Illness - General Chief Complaint: Pain, Acute Stated Complaint: PAIN Time Seen by Provider: 10/02/17 21:58 History Source: Patient - History of Present Illness Initial Comments: 10/02/17 22:09 57-year-old female with interstitial cystitis, prolapsed urethra complaining of frequency of urination, erythema at the urethra and bilateral flank p pain. Patient reports chills no fever. 10/02/17 23:24 Past History - Past Medical History Allergies/Adverse Reactions: Allergies Allergy/AdvReac Type Severity Reaction Status Date / Time Iodinated Contrast- Oral and Allergy Verified 10/02/17 21:03 IV Dye iodine [Iodine] Allergy Itching Verified 10/02/17 21:03 Home Medications: Ambulatory Orders Lurasidone HCl [Latuda -] 20 mg PO DAILY 03/05/16 Cephalexin Monohydrate [Keflex -] 500 mg PO BID #20 capsule 10/02/17 Anemia: No Asthma: No Cancer: No Cardiac Disorders: No CVA: No COPD: No CHF: No Diabetes: No GI Disorders: Yes (H/O PANCREATITIS) Disorders: Yes (CYSTITIS) HTN: Yes (diet controlled) Hypercholesterolemia: Yes Psychiatric Problems: Yes (depression) Seizures: No - Immunization History Td Vaccination: Yes TDAP Vaccination: Yes Immunization Up to Date: Yes - Suicide/Smoking/Psychosocial Hx Smoking Status: No Smoking History: Never smoked Have you smoked in the past 12 months: No Number of Cigarettes Smoked Daily: 0 Hx Alcohol Use: No Drug/Substance Use Hx: No Substance Use Type: None Hx Substance Use Treatment: No Review of Systems - Review of Systems Able to Perform ROS?: Yes Is the patient limited [place] proficient: No Constitutional: No: Symptoms Reported, See HPI, Chills, Diaphoresis, Fever, Loss of Appetite, Malaise, Night Sweats, Weakness, Weight Stable, Unintentional Wgt. Loss, Unexplained wgt Loss, Other HEENTM: No: Symptoms Reported, See HPI, Eye Pain, Blurred Vision, Tearing, Recent change in vision, Double Vision, Cataracts, Ear Pain, Ocular Prothesis, Ear Discharge, Nose Pain, Nose Congestion, Tinnitus, Nose Bleeding, Hearing Loss , Throat Pain, Throat Swelling, Mouth Pain, Dental Problems, Difficulty Swallowing, Mouth Swelling, Other Respiratory: No: Symptoms reported, See HPI, Cough, Orthopnea, Shortness of Breath, SOB with Exertion, SOB at Rest, Stridor, Wheezing, Productive cough, Hemoptysis, Other : Yes: Dysuria, Frequency, Flank Pain, Urgency *Physical Exam - Vital Signs Last Vital Signs Temp Pulse Resp BP Pulse Ox 98.2 F 75 20 141/93 99 10/02/17 21:05 10/02/17 21:05 10/02/17 21:05 10/02/17 21:05 10/02/17 21:05 - Physical Exam General Appearance: Yes: Appropriately Dressed Progress Note - Progress Note Progress Note: A: UTI UA UCX antibiotics *DC/Admit/Observation/Transfer Diagnosis at time of Disposition: UTI (urinary tract infection) Qualifiers: Urinary tract infection type: acute cystitis Hematuria presence: with hematuria Qualified Code(s): N30.01 - Acute cystitis with hematuria - Discharge Dispostion Disposition: HOME - Prescriptions Prescriptions: Cephalexin Monohydrate [Keflex -] 500 mg PO BID #20 capsule - Referrals - Patient Instructions Printed Discharge Instructions: DI for Urinary Tract Infection (UTI) Additional Instructions: drink plenty of fluids. take cephalexin as soon as possible follow up with a Urogynecologist as soon as possible. return to the ER if symptoms worsen, - Post Discharge Activity Forms/Work/School Notes: Back to Work
[2017-10-02 22:41] LABS: URINE APPEARANCE CLOUDY; URINE BILIRUBIN NEGATIVE (NEGATIVE); URINE BLOOD NEGATIVE (NEGATIVE); URINE COLOR YELLOW; URINE GLUCOSE (UA) NEGATIVE (NEGATIVE); URINE KETONE NEGATIVE (NEGATIVE); URINE LEUK ESTERASE TRACE (NEGATIVE); URINE NITRITE NEGATIVE (NEGATIVE); URINE PROTEIN NEGATIVE (NEGATIVE); URINE UROBILINOGEN NEGATIVE mg/dL (0.2-1.0)
[2017-10-02 22:53] LABS: URINE BACTERIA FEW /hpf (NONE SEEN); URINE MUCUS RARE
[2017-10-02] MEDS ORDERED: CEPHALEXIN MONOHYDRATE 500 MG CAPSULE (UD) PO ONE (23:06)
[2017-10-02] MEDS ORDERED: CEPHALEXIN MONOHYDRATE 250 MG CAPSULE (FP) ONE (23:09)
== END 2017-10-02 23:30 | disposition home or self-care (01) ==
LOC: JER 21:01
DX: N30.01 Acute cystitis with hematuria (principal); F32.9 Major depressive disorder, single episode, unspecified; E78.00 Pure hypercholesterolemia, unspecified
CPT/HCPCS: 81003; 81015; 87086; 99281-25

== ENCOUNTER 2018-08-11 17:54 | Emergency (ER) | payer BC, OTHER ==
[2018-08-11 18:05] VITALS: BMI 25.6
[2018-08-11] MEDS ORDERED: SODIUM CHLORIDE 0.9% 500 ML INFUS.BAG IV ONE (18:05)
[2018-08-11] MEDS ORDERED: ONDANSETRON 4 MG/2 ML VIAL IVPB ONE (18:05)
--- NOTE | 2018-08-11 18:05 | PDOC ---
Rapid Medical Evaluation Time Seen by Provider: 08/11/18 18:01 Medical Evaluation: Allergies Allergy/AdvReac Type Severity Reaction Status Date / Time Iodinated Contrast- Oral and Allergy Verified 10/02/17 21:03 IV Dye iodine [Iodine] Allergy Itching Verified 10/02/17 21:03 08/11/18 18:01 I have performed a brief in-person evaluation of the patient. The patient presents with a chief complaint of: abdominal pain pain with nausea. Patient reports history of pancreatitis. Reports loose stools, no vomiting Pertinent physical exam findings. NAD even and unlabored breathing +tenderness in upper mid, and left abdomen I have ordered the following. iv access, labs The patient will proceed to the ED for further evaluation. Discharge Disposition - Referrals Referrals: Cheikh Trevino MD [Primary Care Provider] - - Patient Instructions - Post Discharge Activity
[2018-08-11 18:25] LABS: BASO % 1.3 % (0-2.0); EOS % 0.3 % (0-4.5); HEMATOCRIT 37.6 % (32.4-45.2); HEMOGLOBIN 12.4 GM/dL (10.7-15.3); LYMPH % 40.7 % (8-40); MCH 27.8 pg (25.7-33.7); MEAN CELL VOLUME 84.4 fl (80-96); MONO % 6.8 % (3.8-10.2); NEUT % 50.9 % (42.8-82.8); PLATELET COUNT 304 K/MM3 (134-434); RBC 4.45 M/mm3 (3.60-5.2); RDW 14.6 % (11.6-15.6); WHITE BLOOD COUNT 6.7 K/mm3 (4.0-10.0)
[2018-08-11 18:38] LABS: INR 0.95 (0.83-1.09); PROTHROMBIN TIME (PATIENT) 11.2 SEC (9.7-13.0)
[2018-08-11 18:40] LABS: ACTIVATED PTT 29.4 SECONDS (25.2-36.5)
[2018-08-11 18:51] LABS: ALK PHOS 109 U/L (45-117); AMYLASE 98 U/L (25-115); ANION GAP 9 MMOL/L (8-16); BILIRUBIN,TOTAL 0.2 mg/dL (0.2-1); BLOOD UREA NITROGEN 13 mg/dL (7-18); CALCIUM 9.2 mg/dL (8.5-10.1); CHLORIDE 106 mmol/L (98-107); CO2 26 mmol/L (21-32); CREATININE 0.7 mg/dL (0.55-1.3); GLUCOSE,RANDOM 80 mg/dL (74-106); LIPASE 351 U/L (73-393); POTASSIUM 3.9 mmol/L (3.5-5.1); SGOT/AST 24 U/L (15-37); SGPT/ALT 40 U/L (13-61); SODIUM 141 mmol/L (136-145); TOT PROT 7.7 g/dl (6.4-8.2)
[2018-08-11] MEDS ORDERED: ONDANSETRON 4 MG/2 ML VIAL ONE (18:54)
--- NOTE | 2018-08-11 19:16 | PDOC ---
History of Present Illness - General Chief Complaint: Pain, Acute Stated Complaint: ABD PAIN Time Seen by Provider: 08/11/18 18:01 History Source: Patient Exam Limitations: No Limitations - History of Present Illness Travel History: Yes ([facility] returned 08/01/18) Initial Comments: 08/11/18 19:37 This is a 56 yo F with PMH of GERD, gastritis (prev endoscopy with dr Michael) , pancreatitis, HTN, anxiety and depression, who presents due to epugastric pain that started yesterday at 1 pm after fatty lunch and had since worsened. She states its stabbing, radiating to back and constant. it is not affected by meals and patient has not lost appetive (had a meal today). She reports nausea and increased flatulance but denies n/d/c, f/c, melena, hematochezia. Denies cp , cough, sob, palpitations. denies dysuria, hematuria. Denies eating new foods or sick contacts. returned from [facility] Aug 01. States she used to take daily ppi in the past for GERD but stopped a few years ago in exchange for holistic treatments. 08/11/18 19:38 Past History - Past Medical History Allergies/Adverse Reactions: Allergies Allergy/AdvReac Type Severity Reaction Status Date / Time Iodinated Contrast- Oral and Allergy Verified 08/11/18 18:02 IV Dye iodine [Iodine] Allergy Itching Verified 08/11/18 18:02 Home Medications: Ambulatory Orders Lurasidone HCl [Latuda -] 20 mg PO DAILY 03/05/16 Pantoprazole Sodium [Protonix] 40 mg PO DAILY #7 tablet. 08/11/18 Anemia: No Asthma: No Cancer: No Cardiac Disorders: No CVA: No COPD: No CHF: No Diabetes: No GI Disorders: Yes (H/O PANCREATITIS) Disorders: Yes (CYSTITIS) HTN: Yes (diet controlled) Hypercholesterolemia: Yes Psychiatric Problems: Yes (depression) Seizures: No - Immunization History Td Vaccination: Yes TDAP Vaccination: Yes Immunization Up to Date: Yes - Suicide/Smoking/Psychosocial Hx Smoking Status: No Smoking History: Never smoked Have you smoked in the past 12 months: No Number of Cigarettes Smoked Daily: 0 Hx Alcohol Use: No Drug/Substance Use Hx: No Substance Use Type: None Hx Substance Use Treatment: No Review of Systems - Review of Systems Able to Perform ROS?: Yes Is the patient limited [place]ian proficient: No Constitutional: No: Chills, Fever *Physical Exam - Vital Signs Last Vital Signs Temp Pulse Resp BP Pulse Ox 98.2 F 81 22 H 180/88 H 99 08/11/18 18:03 08/11/18 18:03 08/11/18 18:03 08/11/18 18:03 08/11/18 18:03 Moderate Sedation - Procedure Monitoring Vital Signs: Procedure Monitoring Vital Signs Temperature 98.2 F 08/11/18 18:03 Pulse Rate 81 08/11/18 18:03 Respiratory Rate 22 H 08/11/18 18:03 Blood Pressure 180/88 H 08/11/18 18:03 O2 Sat by Pulse Oximetry (%) 99 08/11/18 18:03 ED Treatment Course - LABORATORY CBC & Chemistry Diagram: 08/11/18 18:16 08/11/18 18:16 - ADDITIONAL ORDERS Additional order review: Laboratory Results 08/11/18 08/11/18 18:16 18:16 PT with INR 11.20 INR 0.95 PTT (Actin FS) 29.4 Sodium 141 Potassium 3.9 Chloride 106 Carbon Dioxide 26 Anion Gap 9 BUN 13 Creatinine 0.7 Creat Clearance w eGFR > 60 Random Glucose 80 Calcium 9.2 Total Bilirubin 0.2 AST 24 ALT 40 Alkaline Phosphatase 109 Total Protein 7.7 Albumin 4.0 Total Amylase 98 Lipase 351 08/11/18 18:16 RBC 4.45 MCV 84.4 MCHC 33.0 RDW 14.6 MPV 7.0 L Neutrophils % 50.9 Lymphocytes % 40.7 H Monocytes % 6.8 Eosinophils % 0.3 Basophils % 1.3 D 08/11/18 21:35 labs unremarkable, lipase wnl clinial picture is most consistent with gastritis/gerd patients pain improves with mylanta and ppi abd US unremarkable - Medications Given in the ED: ED Medications Discontinued Medications Generic Name Dose Route Start Last Admin Trade Name Freq PRN Reason Stop Dose Admin Ondansetron HCl 8 mg 08/11/18 18:05 08/11/18 19:02 Zofran Injection IVPB 08/11/18 18:06 8 mg ONCE ONE Administration Sodium Chloride 1,000 ml 08/11/18 18:05 08/11/18 19:02 Normal Saline - IV 08/11/18 18:06 1,000 ml ONCE ONE Administration *DC/Admit/Observation/Transfer Diagnosis at time of Disposition: Abdominal pain Qualifiers: Abdominal location: epigastric Qualified Code(s): R10.13 - Epigastric pain GERD (gastroesophageal reflux disease) Qualifiers: Esophagitis presence: esophagitis presence not specified Qualified Code(s): K21.9 - Gastro-esophageal reflux disease without esophagitis - Discharge Dispostion Disposition: HOME Condition at time of disposition: Good Decision to Admit order: No - Prescriptions Prescriptions: Pantoprazole Sodium [Protonix] 40 mg PO DAILY #7 tablet.dr - Referrals Referrals: Cheikh Trevino MD [Primary Care Provider] - Saurav Dao MD [Staff Physician] - - Patient Instructions Additional Instructions: your symptoms are suspicious for gastritis/GERD. You will find a referral for Dr Dao gastroenterology. Please follow up with your family doctor tomorrow and schedule Dr Dao appointment rafa. A prescription for Protonix 1 week supply was sent to your pharmacy. - Post Discharge Activity Forms/Work/School Notes: Back to Work
[2018-08-11] MEDS ORDERED: MAG HYDROX/AL HYDROX/SIMETH -MYLANTA- ORAL SUSPENSION PO ONE (19:35)
[2018-08-11] MEDS ORDERED: PANTOPRAZOLE 40 MG TABLET (FP) PO ONE (19:35)
[2018-08-11] MEDS ORDERED: FAMOTIDINE 20 MG/50 ML IVPB 20 MG/50 ML MG IVPB ONE (19:42)
[2018-08-11] MEDS ORDERED: MAG HYDROX/AL HYDROX/SIMETH 30 ML UNIT-DOSE CUP ONE (19:42)
--- NOTE | 2018-08-11 20:04 | PDOC ---
Attending Attestation - Resident Resident Name: Halima Muñoz - HPI HPI: 08/11/18 20:02 58 yo female with long history of GERD has stopped her omeprazole for 6 months. She came back from [facility] on 08/01/18 and was fine until yesterday she noted some loose stool and epigastric discomfort . No fever, no chills, no vomiting. Last endoscopy was [address] Lambert Michael 08/11/18 20:05 - Physicial Exam PE: 08/11/18 20:05 wnwd 58 yo female in no acute distress head ncat neck supple lungs cta b/l cvs [id number] abd no rebound,no guarding,mild epigastric discomfort to deep palpation ext no edema no cva tenderness skin warm and dry neuro axox3,ambulatory, no gross focal neuro deficits psych appropriate - Medical Decision Making 08/11/18 20:09 labs are unremarkable pt has no fever,no vomiting - gallbladdder US was normal pt to received PPI,IVF,maalox and symptoms have improved pt discharged home 08/11/18 22:56
[2018-08-11 21:58] VITALS: BP 152/75; PULSE 58; TEMP 98.1
== END 2018-08-11 21:58 | disposition home or self-care (01) ==
LOC: JER 17:54
PROC: 3E033GC Introduction of Other Therapeutic Substance into Peripheral Vein, Percutaneous Approach (ICD-10-PCS; principal; 2018-08-11)
DX: K21.9 Gastro-esophageal reflux disease without esophagitis (principal); I10 Essential (primary) hypertension; F41.8 Other specified anxiety disorders; F32.9 Major depressive disorder, single episode, unspecified; Z87.19 Personal history of other diseases of the digestive system
CPT/HCPCS: 36415; 76705-TC; 80053; 82150; 83690; 85025; 85610; 85730; 99283-25

== ENCOUNTER 2018-12-04 05:25 | Day surgery (SDC) | payer OTHER | END 2018-12-04 11:45 | disposition home or self-care (01) | LOC: JASU-SURG 05:25 ==

== ENCOUNTER 2019-08-22 19:27 | Emergency (ER) | payer OTHER ==
[2019-08-22 19:44] VITALS: TEMP 98.7; BMI 26.3
--- NOTE | 2019-08-22 20:52 | PDOC ---
History of Present Illness - General Chief Complaint: Edema Stated Complaint: THROAT PROBLEM Time Seen by Provider: 08/22/19 20:50 History Source: Patient Exam Limitations: No Limitations - History of Present Illness Initial Comments: 08/22/19 20:50 PCP: None HPI: 59 F PMH HTN, GERD, Arthritis, presenting with anterior neck lump for 1 month. Patient has a lump on her anterior neck that was expressed by dermatology 1 month ago, she was given an rx for Minocycline 50mg daily. Over this period, the lump has grown in size, today she noticed it being much more visible than before and presented to have it removed. She first called her plastic surgeon (Dr. Juan Boyle) who said she could be seen on Saturday. Patient endorses dry cough for several weeks, denies any fevers, chills, nausea , vomiting, difficulty breathing, throat swelling or pain. Denies any overlying skin changes. No heat or cold intolerance, no skin / hair / nail changes, no weight changes, no history of thyroid problems. No swelling of lips / mouth / face. No ACEI or ARB medications. All: Iodine, contrast media Meds: Per chart PMH: As above PSH: Per chart Past History - Past Medical History Allergies/Adverse Reactions: Allergies Allergy/AdvReac Type Severity Reaction Status Date / Time Iodinated Contrast Media Allergy Intermediate Verified 08/22/19 19:59 iodine [Iodine] Allergy Intermediate Itching Verified 08/22/19 19:59 pineapple Allergy Verified 08/22/19 19:59 Home Medications: Ambulatory Orders Metoprolol Succinate [Toprol Xl] 50 mg PO DAILY 08/22/19 Minocycline HCl [Minocin] 50 mg PO DAILY 08/22/19 Anemia: No Asthma: No Cancer: No Cardiac Disorders: No CVA: No COPD: No CHF: No Diabetes: No GI Disorders: Yes (H/O PANCREATITIS) Disorders: Yes (CYSTITIS) HTN: Yes Hypercholesterolemia: Yes Liver Disease: No Psychiatric Problems: Yes (depression) Seizures: No Thyroid Disease: No - Surgical History Abdominal Surgery: No Appendectomy: No Cardiac Surgery: No Cholecystectomy: No Lung Surgery: No Neurologic Surgery: No Orthopedic Surgery: No - Immunization History Td Vaccination: Yes TDAP Vaccination: Yes Immunization Up to Date: Yes - Psycho Social/Smoking Cessation Hx Smoking Status: No Smoking History: Never smoked Have you smoked in the past 12 months: No Number of Cigarettes Smoked Daily: 0 Hx Alcohol Use: No Drug/Substance Use Hx: No Substance Use Type: None Hx Substance Use Treatment: No Review of Systems - Review of Systems Able to Perform ROS?: Yes Is the patient limited Ukrainian proficient: Yes Constitutional: No: Chills, Diaphoresis, Fever, Weakness HEENTM: No: Nose Congestion, Throat Pain, Throat Swelling, Mouth Pain, Difficulty Swallowing Respiratory: No: Cough, Shortness of Breath, Wheezing Cardiac (ROS): No: Chest Pain, Irregular Heart Rate, Lightheadedness, Palpitations, Chest Tightness ABD/GI: No: Constipated, Diarrhea, Nausea, Vomiting : No: Burning, Dysuria, Frequency Musculoskeletal: No: Muscle Pain, Muscle Weakness Integumentary: Yes: See HPI, Lumps. No: Bruising, Flushing, Rash, Sweating Neurological: No: Headache, Numbness, Tingling, Weakness Psychiatric: No: Stressors, Change in Appetite Endocrine: No: Increased Thirst, Increased Urine, Unexplained Weight Gain, Unexplained Weight Loss, Change in Weight Hematologic/Lymphatic: No: Anemia, Blood Clots, Easy Bleeding All Other Systems: Reviewed and Negative *Physical Exam - Vital Signs Last Vital Signs Temp Pulse Resp BP Pulse Ox 98.7 F 98 H 19 160/70 98 08/22/19 19:39 08/22/19 19:39 08/22/19 19:39 08/22/19 19:39 08/22/19 19:39 - Physical Exam 08/22/19 21:42 Vitals reviewed, AFVSS GEN: Well appearing, appears stated age, NAD, comfortable. AAOx3. HEENT: NCAT, EOMI, PERRL. Sclera anicteric, non-injected. No facial asymmetry. Moist mucous membranes. Normal voice. Trachea midline. +Midline, anterior, superior, mobile firm neck mass (approximately 2cm wide x 1 cm tall), without fluctuance, erythema, warmth. CV: RRR, S1/S2, no murmurs / rubs / gallops appreciated. LUNG: CTAB, normal work of breathing. No wheezes, rales, rhonchi. No cough. Speaking full sentences. GI: Soft, NTND, +BS, no guarding, no rebound. No masses. Neg CVAT b/l. EXTREMITIES: 2+ distal pulses. No LE edema. No obvious deformities of all extremities. SKIN: Warm, dry, no rashes appreciated, non-jaundiced. PSYCH: Normal mood and affect. Cooperative and appropriate. NEURO: CN grossly intact. Moving all extremities well. Normal strength and sensation grossly ED Treatment Course - LABORATORY CBC & Chemistry Diagram: 08/22/19 22:50 08/22/19 22:50 Medical Decision Making - Medical Decision Making 08/22/19 21:27 59 F PMH HTN, GERD, Arthritis, presenting with anterior neck lump for 1 month. History reassuring for Derm/ENT/Plastic providers, no airway compromise, no pain. Exam reassuring for stable vitals, non-tender nodule, non-fluctuant, mobile soft tissue mass without overlying skin changes. DDX: Cyst, Abscess, less likely hematoma. No signs of airway compromise, ludwigs angina, cellulitis , or other emergent signs. - Soft Tissue Head/Neck Ultrasound - Continue ABX per Dermatology - F/u with Plastic Surgery on Saturday as scheduled 08/22/19 23:23 - CBC, CMP unremarkable - Ultrasound with supracystic subq changes, no abscess noted Dispo: Home Discharge - Discharge Information Problems reviewed: Yes Clinical Impression/Diagnosis: Lump in neck Condition: Stable Disposition: HOME - Admission No - Follow up/Referral Referrals: Juan Boyle [Non Staff, Medical] - Andres Norris MD [Staff Physician] - - Patient Discharge Instructions Patient Printed Discharge Instructions: DI for Acne Additional Instructions: Please continue your home medications and the antibiotics per dermatology. Follow up with your Plastic Surgeon on Saturday as planned or your ENT. Return to the ED with any new or concerning symptoms. - Post Discharge Activity
--- NOTE | 2019-08-22 20:56 | PDOC ---
Attending Attestation - Resident Resident Name: Manish Banuelos - ED Attending Attestation I have performed the following: I have examined & evaluated the patient, The case was reviewed & discussed with the resident, I agree w/resident's findings & plan - HPI HPI: 08/22/19 22:28 Pt states that she just got over the flu last week; she had the flu 2 weeks ago. Pt has a dry cough now. Pt had a sore throat in May and at that time she was at [facility] and she was treated with abx. Pt has a hx of gerd and she takes pantoprozole. Dr. Dao (her GI doc) placed her on metronidazole and another med for nausea (zogran?)and she felt ill and stopped taking both. She was placed on 50mg metoprolol by Troy Cai her scada operator. She is worried that the toprol is causeing her neck cyst to get bigger. Pt has complaint that she feels low grade temp. But she is afebrile here. She is anxious about her neck cyst. Her Plastic Surgeon Dr. Carlisle squeezed the neck cyst in Jul and extracted some sebum. She was in so much pain that he stopped and placed her on a month's supply of minocycline. She didn't complete it because she stopped taking it when she had the flu 10 days ago. - Physicial Exam PE: 08/22/19 22:34 Normal exam Afebrile. Mobile central neck cyst (1.5cm diameter approx) btwn her cric cartilage and submental area. However cyst seems tethered to the muscles in the back. Pt has no difficulty breathing or speaking and normal HEENT otherwise. Neuro intact. - Medical Decision Making 08/22/19 22:36 Sono of cyst. 08/22/19 22:41 We will check basic labs and refer pt to a head and neck surgeon 08/22/19 23:24 Labs normal; pt can follow with her ENT Dr. Carlisle.
[2019-08-22 22:58] LABS: EOS % 3.1 % (0-4.5); HEMATOCRIT 35.8 % (32.4-45.2); HEMOGLOBIN 11.8 GM/dL (10.7-15.3); LYMPH % 31.4 % (8-40); MCH 27.3 pg (25.7-33.7); MCHC 32.8 g/dl (32.0-36.0); MEAN CELL VOLUME 83.1 fl (80-96); MEAN PLT VOLUME 6.9 fl (7.5-11.1); MONO % 6.7 % (3.8-10.2); NEUT % 57.8 % (42.8-82.8); PLATELET COUNT 476 K/MM3 (134-434); RBC 4.31 M/mm3 (3.60-5.2); RDW 14.5 % (11.6-15.6)
[2019-08-22 23:20] LABS: ALBUMIN 3.6 g/dl (3.4-5.0); BILIRUBIN,TOTAL 0.2 mg/dL (0.2-1); CALCIUM 9.7 mg/dL (8.5-10.1); CREATININE 0.7 mg/dL (0.55-1.3); POTASSIUM 3.8 mmol/L (3.5-5.1); TOT PROT 7.8 g/dl (6.4-8.2)
[2019-08-22 23:40] VITALS: BP 146/68; PULSE 86
== END 2019-08-22 23:38 | disposition home or self-care (01) ==
LOC: JER 19:27 → SUPCPDRO 19:27 → JER 23:38
DX: R22.1 Localized swelling, mass and lump, neck (principal); K21.9 Gastro-esophageal reflux disease without esophagitis; I10 Essential (primary) hypertension; M12.9 Arthropathy, unspecified; E78.00 Pure hypercholesterolemia, unspecified; F32.9 Major depressive disorder, single episode, unspecified; Z87.19 Personal history of other diseases of the digestive system; Z91.041 Radiographic dye allergy status; Z91.018 Allergy to other foods
CPT/HCPCS: 36415; 76536-TC; 80053; 85025; 99282-25

== ENCOUNTER 2020-02-11 22:57 | Observation (INO) | payer OTHER ==
--- NOTE | 2020-02-11 23:04 | PDOC ---
Rapid Medical Evaluation Chief Complaint: Back Pain Time Seen by Provider: 02/11/20 23:02 Medical Evaluation: Allergies Allergy/AdvReac Type Severity Reaction Status Date / Time Iodinated Contrast Media Allergy Intermediate Verified 10/17/19 14:51 iodine [Iodine] Allergy Intermediate Itching Verified 10/17/19 14:51 pineapple Allergy Verified 10/17/19 14:51 Vital Signs Temp Pulse Resp BP Pulse Ox 98.3 F 76 19 155/85 99 02/11/20 22:58 02/11/20 22:58 02/11/20 22:58 02/11/20 22:58 02/11/20 22:58 02/11/20 23:03 59 year old female pmhx of HTN COVID + in October complaining of SOB and thoracic back pain for a few days. PE: RRR CTA TTP over left thoracic paravertebrals no midline tenderness Plan Chest XR Pt to precede to ED for further evaluation
[2020-02-11 23:05] VITALS: BMI 25.6
[2020-02-12] MEDS ORDERED: ACETAMINOPHEN 325 MG TABLET (FP) PO ONE (00:55)
[2020-02-12] MEDS ORDERED: ASPIRIN 81 MG CHEWABLE TABLETS PO ONE (00:55)
[2020-02-12 00:57] LABS: BASO % 0.6 % (0-2.0); EOS % 0.3 % (0-4.5); HEMATOCRIT 37.4 % (32.4-45.2); HEMOGLOBIN 12.1 GM/dL (10.7-15.3); LYMPH % 42.1 % (8-40); MCH 27.2 pg (25.7-33.7); MCHC 32.3 g/dl (32.0-36.0); MEAN CELL VOLUME 84.3 fl (80-96); MEAN PLT VOLUME 7.5 fl (7.5-11.1); MONO % 5.2 % (3.8-10.2); NEUT % 51.8 % (42.8-82.8); PLATELET COUNT 284 K/MM3 (134-434); RBC 4.44 M/mm3 (3.60-5.2); RDW 14.2 % (11.6-15.6); WHITE BLOOD COUNT 5.8 K/mm3 (4.0-10.0)
[2020-02-12] MEDS ORDERED: ACETAMINOPHEN 325 MG TABLET (FP) ONE (01:04)
[2020-02-12] MEDS ORDERED: ASPIRIN 81 MG CHEWABLE TABLETS ONE (01:04)
[2020-02-12 01:11] LABS: POTASSIUM 3.7 mmol/L (3.5-5.1)
[2020-02-12 01:14] LABS: ALBUMIN 4.1 g/dl (3.4-5.0); BLOOD UREA NITROGEN 10.6 mg/dL (7-18); CALCIUM 9.6 mg/dL (8.5-10.1)
--- NOTE | 2020-02-12 01:14 | PDOC ---
History of Present Illness - General Chief Complaint: Back Pain Stated Complaint: PAIN Time Seen by Provider: 02/11/20 23:02 History Source: Patient Exam Limitations: No Limitations - History of Present Illness Initial Comments: 02/12/20 01:08 Amanda Troncoso is a 59 F with a PMH of HTN, HLD, Covid + (october), shingles, pacreatitis, and chronic Lumbar pain, presents to ER with left flank/back pain for 1 d. Patient reports that her pain started at around 9.00pm when she was get ting ready to sleep. The pain was sudden onset, sharp, constant, radiating to left shoulder and to left chest/abdomen, 7/10 in severity. patient reports that she has had singles before but this time it feels different. She denies any headache, nausea, vomiting, SOB, headache, changes in vision, cough, or visible rash. She has not received shingles vaccine. 02/12/20 01:15 02/12/20 05:49 Past History - Travel History Traveled outside of the country in the last 30 days: No - Medical History Allergies/Adverse Reactions: Allergies Allergy/AdvReac Type Severity Reaction Status Date / Time Iodinated Contrast Media Allergy Intermediate Verified 02/12/20 04:38 iodine [Iodine] Allergy Intermediate Itching Verified 02/12/20 04:38 pineapple Allergy Verified 02/12/20 04:38 Home Medications: Ambulatory Orders Metoprolol Succinate [Toprol Xl] 50 mg PO DAILY 08/22/19 Pantoprazole Sodium 40 mg PO DAILY 10/17/19 Albuterol Sulfate Inhaler - [Ventolin HFA Inhaler -] 1 - 2 inh PO Q4H PRN #1 inhaler 10/19/19 Hydroxychloroquine Sulfate [Plaquenil] 200 mg PO BID 3 Days #6 tablet 10/19/19 Zinc Sulfate [Zinc-220] 220 mg PO DAILY #5 capsule 10/19/19 Anemia: No Asthma: No Cancer: No Cardiac Disorders: No CVA: No COPD: No CHF: No Dementia: No Diabetes: No GI Disorders: Yes (H/O PANCREATITIS) Disorders: Yes (CYSTITIS) HTN: Yes Hypercholesterolemia: Yes Liver Disease: No Psychiatric Problems: Yes (depression) Seizures: No Thyroid Disease: No - Surgical History Abdominal Surgery: No Appendectomy: No Cardiac Surgery: No Cholecystectomy: No Lung Surgery: No Neurologic Surgery: No Orthopedic Surgery: No - Immunization History Td Vaccination: Yes TDAP Vaccination: Yes Immunization Up to Date: Yes - Psycho-Social/Smoking History Smoking Status: No Smoking History: Never smoked Have you smoked in the past 12 months: No Number of Cigarettes Smoked Daily: 0 - Substance Abuse Hx (Audit-C & DAST Scrn) How often the patient has a drink containing alcohol: Never Score: In Men: 4 or > Positive; In Women: 3 or > Positive: 0 Screen Result (Pos requires Nsg. Audit-10AR): Negative In the last yr the pt used illegal drug/Rx for NonMed reason: No Score: Yes response is considered Positive: 0 Screen Result (Positive result requires Nsg. DAST-10): Negative Review of Systems - Review of Systems Able to Perform ROS?: Yes Is the patient limited [place]er proficient: No Constitutional: No: Chills, Diaphoresis, Fever, Night Sweats, Weakness HEENTM: No: Blurred Vision, Recent change in vision, Nose Congestion, Throat Pain Respiratory: No: Cough, Shortness of Breath, SOB with Exertion, SOB at Rest Cardiac (ROS): Yes: Chest Pain (Left Flank pain radiating to Left chest). No: Lightheadedness, Palpitations ABD/GI: No: Constipated, Diarrhea, Poor Appetite, Poor Fluid Intake : No: Burning, Dysuria Musculoskeletal: Yes: Muscle Pain Neurological: No: Headache, Numbness, Paresthesia *Physical Exam - Vital Signs Last Vital Signs Temp Pulse Resp BP Pulse Ox 98.3 F 76 19 155/85 99 02/11/20 22:58 02/11/20 22:58 02/11/20 22:58 02/11/20 22:58 02/11/20 22:58 - Physical Exam General Appearance: Yes: Nourished. No: Apparent Distress HEENT: positive: EOMI, WENCESLAO. negative: Rhinorrhea Neck: positive: Supple. negative: Tender, Carotid bruit, Rigidity Respiratory/Chest: positive: Lungs Clear, Normal Breath Sounds. negative: Chest Tender, Respiratory Distress, Crackles, Rales, Rhonchi Cardiovascular: positive: Regular Rhythm, Regular Rate, S1, S2. negative: Edema, JVD, Murmur, Gallop/S3, Gallop/S4 Vascular Pulses: Carotid (R): 2+, Carotid (L): 2+, Dorsalis-Pedis (R): 2+, Doralis-Pedis (L): 2+ Musculoskeletal: negative: CVA Tenderness Extremity: negative: Pedal Edema, Calf Tenderness, Erythema Integumentary: positive: Normal Color, Dry, Warm Neurologic: positive: Fully Oriented, Alert. negative: Sensory Deficit ED Treatment Course - LABORATORY CBC & Chemistry Diagram: 02/12/20 00:32 02/12/20 00:32 - ADDITIONAL ORDERS Additional order review: 02/12/20 00:32 RBC 4.44 MCV 84.3 MCHC 32.3 RDW 14.2 MPV 7.5 Neutrophils % 51.8 Lymphocytes % 42.1 H Monocytes % 5.2 Eosinophils % 0.3 D Basophils % 0.6 - RADIOLOGY Chest X-Ray Result: No Infiltrates Medical Decision Making - Medical Decision Making 02/12/20 01:31 59 F with a PMH of HTN and HLD presents with 1D of flank pain radiating to left shoulder and left chest. Ordered EKG, CXR, Continuous cardiac monitoring, CBC, CMP, Cardiac profile. #r/o ACS - patient has risk factors for ACS: age, hx of HTN, HLD - Trops x1 negative - EKG: NS AL 142 QTc 442 QRS 80 Vent.rate 61 - treated with ASA 324mg, acetaminophen 975 - Adm to tele-obs for further monitoring 02/12/20 01:35 02/12/20 03:40 Discharge - Discharge Information Problems reviewed: Yes Clinical Impression/Diagnosis: Flank pain Condition: Stable - Admission Yes - Follow up/Referral - Patient Discharge Instructions - Post Discharge Activity
--- NOTE | 2020-02-12 01:15 | PDOC ---
Attending Attestation - Resident Resident Name: Terrence Deras - ED Attending Attestation I have performed the following: I have examined & evaluated the patient, The case was reviewed & discussed with the resident, I agree w/resident's findings & plan, Exceptions are as noted - HPI HPI: 02/18/20 20:57 See resident HPI - Physicial Exam PE: 02/18/20 20:57 Agree with documented exam - Medical Decision Making 02/18/20 20:59 L flank pain radiating to L chest and shoulder, no other associated symptoms consider atypical cp f/u labs, ekg, cxr dispo per clinical course likely admit tele Discharge - Discharge Information Problems reviewed: Yes Clinical Impression/Diagnosis: Flank pain Condition: Stable Disposition: HOME - Follow up/Referral - Patient Discharge Instructions - Post Discharge Activity
[2020-02-12 01:18] LABS: BILIRUBIN,TOTAL 0.3 mg/dL (0.2-1); CREATININE 0.7 mg/dL (0.55-1.3); TOT PROT 7.6 g/dl (6.4-8.2)
--- NOTE | 2020-02-12 03:02 | PN ---
Teaching Attending Note Name of Resident: Doug Torres ATTENDING PHYSICIAN STATEMENT I saw and evaluated the patient. I reviewed the resident's note and discussed the case with the resident. I agree with the resident's findings and plan as documented. SUBJECTIVE: Patient is a 59 year old woman with a PMH of HTN, HLD, Depression, GERD, Kidney stone, Left ear deafness, Sciatica, COVID-19 infection (October 2019), Shingles, Pancreatitis and Chronic lumbar pain who presents to the ER with left flank/back pain for one day. Patient reports that her pain started at around 9.00pm when she was getting ready to sleep. The pain was sudden onset, sharp, constant, radiating to left shoulder and to left chest/abdomen, 7/10 in severity. Patient reports that she has had shingles before but this time it feels different. She denies any headache, nausea, vomiting, SOB, headache, changes in vision, cough, or visible rash. She has not received shingles vaccine. Patient denies headache, palpitations, dizziness, fever, chills, diarrhea, constipation, dysuria, frequency, urgency, melena, hematochezia or hematuria. Denies alcohol, tobacco or illicit drug use. No sick contacts or recent travels. Family history is unremarkable. OBJECTIVE: Alert Vital Signs Period Temp Pulse Resp BP Sys/Medrano Pulse Ox Last 24 Hr 98.3 F 76 19 155/85 99 HEENT: No Jaundice, eye redness or discharge, PERRLA, EOMI. Normocephalic, atraumatic. External ears are normal; left ear deafness. No nasal discharge. Neck: Supple, nontender. No palpable adenopathy or thyromegaly. No JVD Chest: Good effort. Clear to auscultation and percussion. Heart: Regular. No S3, rub or murmur Abdomen: Not distended, soft, nontender and no HSM. No rebound or guarding. Normal bowel sounds. Ext: Peripheral pulses intact. No leg edema. Skin: Warm and dry. No petechiae, rash or ecchymosis. Neuro: Alert. Oriented x3. CN 2-12 grossly intact. Sensation grossly intact in all four extremities and DTR are symmetric. Psych: Appropriate mood and affect. Good insight. Home Medications Medication Instructions Recorded Metoprolol Succinate [Toprol Xl] 50 mg PO DAILY 02/08/20 Pantoprazole Sodium 40 mg PO DAILY 10/17/19 Albuterol Sulfate Inhaler - 1 - 2 inh PO Q4H PRN #1 inhaler 10/19/19 [Ventolin HFA Inhaler -] Cefuroxime Axetil [Ceftin -] 250 mg PO BID #14 tablet 10/19/19 Hydroxychloroquine Sulfate 200 mg PO BID 3 Days #6 tablet 10/19/19 [Plaquenil] Zinc Sulfate [Zinc-220] 220 mg PO DAILY #5 capsule 10/19/19 Abnormal Lab Results 02/12/20 00:32 Lymphocytes % 42.1 H Current Medications Generic Name Dose Route Start Last Admin Trade Name Freq PRN Reason Stop Dose Admin Heparin Sodium (Porcine) 5,000 unit 02/12/20 06:00 Heparin - SQ TID GERI ASSESSMENT AND PLAN: 1. Left flank/back pain - Etiology unclear. May be early shingles or neuropathy associated with recent COVID-19 infection. CXR shows hyperinflation with no evidence of acute lung disease. Viral testing for COVID-19 ordered and patient placed on airborne, droplet and contact isolation. ER staff prescribed Tylenol and Aspirin 324 mg for the patient. EKG shows NSR at 81/minute and QTc [address]-T wave changes. Initial troponin is negative. Will get urinalysis STAT, CT abdomen/pelvis, admit to telemetry, trend troponin, get ECHO and fasting lipids. Will continue comprehensive care for all of patients comorbid conditions. 2. Uncontrolled hypertension Will restart suitable outpatient antihypertensive drugs when clinically appropriate. Subsequently, will revise regimen to ensure [id number] excellent BP control. Patient counseled on the injurious effects of uncontrolled hypertension. Nonpharmacologic measures to control hypertension like weight loss, salt restriction and exercise stressed. Importance of adherence to treatment regimen and attainment of normotension emphasized. 3. DVT prophylaxis - Lovenox 40 mg SQ q 24 hours. 4. Advance directives - Full code
--- NOTE | 2020-02-12 04:14 | HP ---
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 The pain is located difusely on upper and lower back, heavy in character, non-radiating, no associated symptoms, gradual onset, 7/10 at peak. She did not do anything to make it better or worse. She reports feeling very worried that her h/o Covid-19 is the etiology of her pain. She denies any heavy lifting or exercise/exertion. She reports that the pain is NOT like her experience of nephrolithiasis nor shingles. She denies dysuria, hematuria, diarrhea, constipation. Her GERD has been under control with diet/behavior modifications. ER course was notable for: (1) ASA full dose given (2) Acetominophen (3) Denies chest pain Recent Travel: denies PAST MEDICAL HISTORY: Family history: Mother DM and HTN. Aunt with colon CA PAST SURGICAL HISTORY: LEFT knee arthroscopy Social History: Smoking: denies Alcohol: social Drugs: denies Works at [employer] in [place]. Lives with and son. Allergies Iodinated Contrast Media Allergy (Intermediate, Verified 10/17/19 14:51) iodine [Iodine] Allergy (Intermediate, Verified 10/17/19 14:51) Itching pineapple Allergy (Verified 10/17/19 14:51) HOME MEDICATIONS: Lurasidone 20 mg po qd Pantoprazole 40 mg po qd Vitamin C 1,000 mg po qd REVIEW OF SYSTEMS CONSTITUTIONAL: Absent: fever, chills, diaphoresis, generalized weakness, malaise, loss of appetite, weight change HEENT: Absent: rhinorrhea, nasal congestion, throat pain, throat swelling, difficulty swallowing, mouth swelling, ear pain, eye pain, visual changes CARDIOVASCULAR: Absent: chest pain, syncope, palpitations, irregular heart rate, lightheadedness, peripheral edema RESPIRATORY: Absent: cough, shortness of breath, dyspnea with exertion, orthopnea, wheezing, stridor, hemoptysis GASTROINTESTINAL: Absent: abdominal pain, abdominal distension, nausea, vomiting, diarrhea, constipation, melena, hematochezia GENITOURINARY: Absent: dysuria, frequency, urgency, hesitancy, hematuria, flank pain, genital pain MUSCULOSKELETAL: Absent: myalgia, arthralgia, joint swelling, back pain, neck pain SKIN: Absent: rash, itching, pallor HEMATOLOGIC/IMMUNOLOGIC: Absent: easy bleeding, easy bruising, lymphadenopathy, frequent infections ENDOCRINE: Absent: unexplained weight gain, unexplained weight loss, heat intolerance, cold intolerance NEUROLOGIC: Absent: headache, focal weakness or paresthesias, dizziness, unsteady gait, seizure, mental status changes, bladder or bowel incontinence PSYCHIATRIC: Absent: anxiety, depression, suicidal or homicidal ideation, hallucinations. PHYSICAL EXAMINATION Vital Signs - 24 hr 02/11/20 22:58 Temperature 98.3 F Pulse Rate 76 Respiratory 19 Rate Blood Pressure 155/85 O2 Sat by Pulse 99 Oximetry (%) GENERAL: Awake, alert, and fully oriented, in no acute distress. HEAD: Normal with no signs of trauma. EYES: Pupils equal, round and reactive to light, extraocular movements intact, sclera anicteric, conjunctiva clear. No lid lag. EARS, NOSE, THROAT: Ears normal, nares patent, oropharynx clear without exudates. Moist mucous membranes. NECK: Normal range of motion, supple without lymphadenopathy, JVD, or masses. LUNGS: Breath sounds equal, clear to auscultation bilaterally. No wheezes, and no crackles. No accessory muscle use. HEART: Regular rate and rhythm, normal S1 and S2 without murmur, rub or gallop. ABDOMEN: Soft, nontender, not distended, normoactive bowel sounds, no guarding, no rebound, no masses. No hepatomegaly or splenomegaly. MUSCULOSKELETAL: Normal range of motion at all joints. No bony deformities or tenderness. No CVA tenderness. UPPER EXTREMITIES: 2+ pulses, warm, well-perfused. No cyanosis. No clubbing. No peripheral edema. LOWER EXTREMITIES: 2+ pulses, warm, well-perfused. No calf tenderness. No peripheral edema. NEUROLOGICAL: Cranial nerves II-XII intact. Normal speech. Normal gait. PSYCHIATRIC: Cooperative. Good eye contact. Appropriate mood and affect. SKIN: Warm, dry, normal turgor, no rashes or lesions noted, normal capillary refill. Laboratory Results - last 24 hr 02/12/20 02/12/20 02/12/20 00:32 00:32 00:32 WBC 5.8 RBC 4.44 Hgb 12.1 Hct 37.4 MCV 84.3 MCH 27.2 MCHC 32.3 RDW 14.2 Plt Count 284 MPV 7.5 Absolute Neuts (auto) 3.0 Neutrophils % 51.8 Lymphocytes % 42.1 H Monocytes % 5.2 Eosinophils % 0.3 D Basophils % 0.6 Nucleated RBC % 0 Sodium 141 Potassium 3.7 Chloride 105 Carbon Dioxide 27 Anion Gap 9 BUN 10.6 Creatinine 0.7 Est GFR (CKD-EPI)AfAm 108.38 Est GFR (CKD-EPI)NonAf 93.51 Random Glucose 83 Calcium 9.6 Total Bilirubin 0.3 AST 16 ALT 18 Alkaline Phosphatase 89 Troponin I 0.02 Total Protein 7.6 Albumin 4.1 ASSESSMENT/PLAN: 59 y/o female PMH HTN, HLD, Covid-19, shingles, LEFT ear deafness 2/2 ottosclerosis, GERD and sciatica c/o hours of LEFT sided back pain. She associated pain with Covid-19 hx and denies similarity to nephrolithiasis/zoster. W/u still pending - need UA, appropriate imaging # Zoster VS muscle strain VS nephrolithaisis VS [id number] sequelae - UA - CT a/p - Trop - ECHO - Can consider cardio consult # DVT - Lovenox # FEN - PO - Monitor and replace - Low sodium diet # Disposition - Observation Visit type - Emergency Visit Emergency Visit: Yes ED Registration Date: 02/12/20 Care time: The patient presented to the Emergency Department on the above date and was hospitalized for further evaluation of their emergent condition. - New Patient This patient is new to me today: Yes Date on this admission: 02/18/20 - Critical Care Critical Care patient: No ATTENDING PHYSICIAN STATEMENT I saw and evaluated the patient. I reviewed the resident's note and discussed the case with the resident. I agree with the resident's findings and plan as documented. SUBJECTIVE: OBJECTIVE: ASSESSMENT AND PLAN:
[2020-02-12] MEDS ORDERED: HEPARIN NA (PORCINE) 5,000 UNITS/ML 1ML VIAL SQ SCH (06:00)
[2020-02-12] MEDS ORDERED: HEPARIN NA (PORCINE) 5,000 UNITS/ML 1ML VIAL ONE (06:14)
[2020-02-12] MEDS ORDERED: GABAPENTIN 100 MG CAPSULE PO ONE (08:41)
[2020-02-12] MEDS ORDERED: amLODIPine BESYLATE 10 MG TABLET (FP) PO SCH (10:00)
[2020-02-12] MEDS ORDERED: ENOXAPARIN NA (PORCINE) 40 MG/0.4 ML DISP.SYRIN SQ SCH (10:00)
[2020-02-12] MEDS ORDERED: amLODIPine BESYLATE 5 MG TABLET (FP) ONE (10:42)
[2020-02-12] MEDS ORDERED: GABAPENTIN 100 MG CAPSULE ONE (10:42)
[2020-02-12] MEDS ORDERED: ENOXAPARIN NA (PORCINE) 40 MG/0.4 ML DISP.SYRIN SQ ONE (10:43)
[2020-02-12 10:59] LABS: BASO % 0.4 % (0-2.0); EOS % 0.4 % (0-4.5); HEMOGLOBIN 12.2 GM/dL (10.7-15.3); LYMPH % 41.7 % (8-40); MCH 27.1 pg (25.7-33.7); MCHC 32.2 g/dl (32.0-36.0); MEAN CELL VOLUME 84.3 fl (80-96); MEAN PLT VOLUME 7.4 fl (7.5-11.1); MONO % 5.5 % (3.8-10.2); PLATELET COUNT 278 K/MM3 (134-434); RBC 4.51 M/mm3 (3.60-5.2); RDW 14.2 % (11.6-15.6); WHITE BLOOD COUNT 4.6 K/mm3 (4.0-10.0)
[2020-02-12 11:28] LABS: CHOLESTEROL 247 mg/dL (50-200); HDL CHOLESTEROL 72 mg/dL (40-60); LDL CHOLESTEROL (ONLY SJRH) 167 mg/dL (5-100); TRIGLYCERIDES 66 mg/dL (0-150)
[2020-02-12 11:31] LABS: ALBUMIN 3.9 g/dl (3.4-5.0); ALK PHOS 89 U/L (45-117); ANION GAP 7 MMOL/L (8-16); BILIRUBIN,TOTAL 0.5 mg/dL (0.2-1); BLOOD UREA NITROGEN 8.4 mg/dL (7-18); CALCIUM 9.6 mg/dL (8.5-10.1); CHLORIDE 106 mmol/L (98-107); CO2 28 mmol/L (21-32); CREATININE 0.6 mg/dL (0.55-1.3); GLUCOSE,RANDOM 79 mg/dL (74-106); MAGNESIUM 2.5 mg/dL (1.8-2.4); PHOSPHOROUS 4.1 mg/dL (2.5-4.9); POTASSIUM 3.8 mmol/L (3.5-5.1); SGOT/AST 15 U/L (15-37); SGPT/ALT 16 U/L (13-61); SODIUM 141 mmol/L (136-145); TOT PROT 7.4 g/dl (6.4-8.2)
--- NOTE | 2020-02-12 12:37 | EKG ---
Test Reason : Blood Pressure : / mmHG Vent. Rate : 061 BPM Atrial Rate : 061 BPM P-R Int : 142 ms QRS Dur : 080 ms QT Int : 440 ms P-R-T Axes : 039 032 034 degrees QTc Int : 442 ms NORMAL SINUS RHYTHM POSSIBLE LEFT ATRIAL ENLARGEMENT WHEN COMPARED WITH ECG OF 19-OCT-2019 10:16, NO SIGNIFICANT CHANGE WAS FOUND Confirmed by KINGSTON SPAIN MD ([id number]) on 02/12/2020 12:37:36 PM Referred By: Confirmed By:KINGSTON SPAIN MD
--- NOTE | 2020-02-12 16:38 | DS ---
Physical Exam: SUBJECTIVE: Patient seen and examined. She reported she came in because of left sided back pain, similar in location where she had her shingles 3 years ago. Patient was concerned if her covid came back that's why she came in. She has hx of trigeminal neuralgia and sciatica, to which she follows up with Dr. Jones (pain mgt) and Dr. Burrows. She usually takes gabapentin 300mg at bedtime, which she missed to take last night. otherwise, patient denies any fevers, chills, headache, dizziness,chest pain, shortness of breath, belly pain, diarrhea, urinary symptoms. OBJECTIVE: Vital Signs Temperature 98.1 F 02/12/20 11:11 Pulse Rate 66 02/12/20 11:11 Respiratory Rate 18 02/12/20 11:11 Blood Pressure 113/55 L 02/12/20 11:11 O2 Sat by Pulse Oximetry (%) 99 02/12/20 11:11 PHYSICAL EXAM GENERAL: The patient is awake, alert, and fully oriented, in no acute distress. NECK: full range of motion, supple. LUNGS: Breath sounds equal, clear to auscultation bilaterally HEART: Regular rate and rhythm, S1, S2 without murmur, rub or gallop. ABDOMEN: Soft, nontender, nondistended, normoactive bowel sounds BACK: No lesions or erythema noted on the left flank area where patient reports pain. non tender to palpation. EXTREMITIES: 2+ pulses, warm, well-perfused, no edema. NEUROLOGICAL: Cranial nerves II through XII grossly intact. Normal speech, normal gait PSYCH: Normal mood, normal affect. SKIN: Warm, dry, normal turgor, no rashes or lesions noted. LABS Laboratory Results - last 24 hr 02/12/20 02/12/20 02/12/20 00:32 00:32 00:32 WBC 5.8 RBC 4.44 Hgb 12.1 Hct 37.4 MCV 84.3 MCH 27.2 MCHC 32.3 RDW 14.2 Plt Count 284 MPV 7.5 Absolute Neuts (auto) 3.0 Neutrophils % 51.8 Lymphocytes % 42.1 H Monocytes % 5.2 Eosinophils % 0.3 D Basophils % 0.6 Nucleated RBC % 0 Sodium 141 Potassium 3.7 Chloride 105 Carbon Dioxide 27 Anion Gap 9 BUN 10.6 Creatinine 0.7 Est GFR (CKD-EPI)AfAm 108.38 Est GFR (CKD-EPI)NonAf 93.51 Random Glucose 83 Calcium 9.6 Phosphorus Magnesium Total Bilirubin 0.3 AST 16 ALT 18 Alkaline Phosphatase 89 Troponin I 0.02 Total Protein 7.6 Albumin 4.1 Triglycerides Cholesterol Total LDL Cholesterol HDL Cholesterol 02/12/20 02/12/20 02/12/20 10:47 10:47 10:47 WBC 4.6 RBC 4.51 Hgb 12.2 Hct 38.0 MCV 84.3 MCH 27.1 MCHC 32.2 RDW 14.2 Plt Count 278 MPV 7.4 L Absolute Neuts (auto) 2.4 Neutrophils % 52.0 Lymphocytes % 41.7 H Monocytes % 5.5 Eosinophils % 0.4 Basophils % 0.4 Nucleated RBC % 0 Sodium 141 Potassium 3.8 Chloride 106 Carbon Dioxide 28 Anion Gap 7 L BUN 8.4 Creatinine 0.6 Est GFR (CKD-EPI)AfAm 114.02 Est GFR (CKD-EPI)NonAf 98.38 Random Glucose 79 Calcium 9.6 Phosphorus 4.1 Magnesium 2.5 H Total Bilirubin 0.5 AST 15 ALT 16 Alkaline Phosphatase 89 Troponin I < 0.02 Total Protein 7.4 Albumin 3.9 Triglycerides 66 Cholesterol 247 H Total LDL Cholesterol 167 H HDL Cholesterol 72 H HOSPITAL COURSE: Date of Admission:02/12/20 Date of Discharge: 02/12/20 Patient is a 59 y/o female PMH HTN, HLD, Covid-19, shingles, LEFT ear deafness 2/2 otosclerosis, GERD and sciatica c/o hours of LEFT sided back pain. She associated pain with Covid-19 hx and denies similarity to nephrolithiasis/zoster. CXR revealed improvement of infiltrates from her previous xray. CT was negative for any stone. Trop was negative x2. Patient's blood pressure improved with her home medications. Patient was discharged with instructions to take her medications and to follow up with her PCP, pulm, neuro, cardio and pain mgt doctors. Minutes to complete discharge: 36 Discharge Summary Problems reviewed: Yes Reason For Visit: ACUTE CORONARY SYNDROME, HYERTENSION Current Active Problems Flank pain (Acute) Condition: Stable - Instructions Diet, Activity, Other Instructions: Your visit You were admitted to the hospital because you had left sided pain. Chest xray was unremarkable, and showed improvement from your previous xray when you had the COVID. CT of your belly was also unremarkable. It's probably nerve pain from your shingles. You may increase your gabapentin to 2-3 times a day as tolerated. Your blood pressure was also noted to be elevated. Please continue taking your Metoprolol as prescribed by your mail processing equipment mechanic. Medications Please continue your home medications. Follow up Please follow up with your primary care doctor within 1 week. You need to have your blood pressure checked to determine if you need additional medications. Please follow up with your neurologist (Dr. Burrows) as scheduled. Please follow up with your mail processing equipment mechanic (Dr. Page) in 1-2 weeks. Additional info Please call 911 or go to the ED if with any worsening fevers, chills, headache, dizziness, chest pain, shortness of breath, belly pain or any new concerns noted. Referrals: Cristian Burrows MD [Staff Physician] - Kevin Plasencia MD [Staff Physician] - Garrison Page MD [Staff Physician] - Esau Jones DO [Staff Physician] - Disposition: HOME - Home Medications Comprehensive Discharge Medication List: Ambulatory Orders Metoprolol Succinate [Toprol Xl] 50 mg PO DAILY 08/22/19 Pantoprazole Sodium 40 mg PO DAILY 10/17/19 Gabapentin 300 mg PO HS 02/12/20 Gabapentin [Neurontin -] 300 mg PO HS capsule 02/12/20 This patient is new to me today: Yes Date on this admission: 02/12/20 Emergency Visit: Yes ED Registration Date: 02/12/20 Care time: The patient presented to the Emergency Department on the above date and was hospitalized for further evaluation of their emergent condition. Critical Care patient: No - Discharge Referral Referred to [facility] No ATTENDING PHYSICIAN STATEMENT I saw and evaluated the patient. I reviewed the resident's note and discussed the case with the resident. I agree with the resident's findings and plan as documented. SUBJECTIVE: OBJECTIVE: ASSESSMENT AND PLAN:
[2020-02-12 17:55] VITALS: BP 118/53; PULSE 56; TEMP 97.6
[2020-02-12] MEDS ORDERED: GABAPENTIN 300 MG CAPSULE PO SCH (22:00)
== END 2020-02-12 17:02 | disposition home or self-care (01) ==
LOC: JER 22:57 → JERBED 02-12 01:21
PROVIDERS: ADMIT Internal Medicine
PROC: 3E023GC Introduction of Other Therapeutic Substance into Muscle, Percutaneous Approach (ICD-10-PCS; principal; 2020-02-12)
DX: M54.30 Sciatica, unspecified side (principal); R10.32 Left lower quadrant pain; B02.9 Zoster without complications; Z29.9 Encounter for prophylactic measures, unspecified; E78.5 Hyperlipidemia, unspecified; I10 Essential (primary) hypertension; H91.8X2 Other specified hearing loss, left ear; K21.9 Gastro-esophageal reflux disease without esophagitis; Z86.19 Personal history of other infectious and parasitic diseases; F32.9 Major depressive disorder, single episode, unspecified; Z87.442 Personal history of urinary calculi; Z88.8 Allergy status to other drugs, medicaments and biological substances; Z91.018 Allergy to other foods
CPT/HCPCS: 36415; 71046-TC-FY; 74176-TC; 80053; 80061; 83721; 83735; 84100; 84484; 85025; 93005; 93010; 96372; 99285-25; G0378; J1644; U0003

== ENCOUNTER 2020-04-05 12:28 | Emergency (ER) | payer OTHER ==
[2020-04-05 12:59] VITALS: BP 145/73; PULSE 85; TEMP 97.7; BMI 25.6
[2020-04-05] MEDS ORDERED: DIPHTH,PERTUSS(ACELL),TET 0.5 ML DISP.SYRIN IM ONE ×2 (13:40→13:43)
[2020-04-05] MEDS ORDERED: CEPHALEXIN MONOHYDRATE 500 MG CAPSULE (UD) PO ONE (13:40)
[2020-04-05] MEDS ORDERED: CEPHALEXIN MONOHYDRATE 500 MG CAPSULE (UD) ONE (13:43)
--- NOTE | 2020-04-05 13:46 | PDOC ---
History of Present Illness - General Chief Complaint: Injury Stated Complaint: INJURY Time Seen by Provider: 04/05/20 13:15 History Source: Patient Exam Limitations: No Limitations - History of Present Illness Initial Comments: 04/05/20 13:41 Patient is a 59-year-old female with history of hypertension and depression who presents to the ED with a puncture wound that she sustained while at work. The patient works at [employer] and picked up a small piece of plastic off the floor. The plastic was sharp and punctured her right hand. She states she is unsure where the plastic came from. She denies being stuck by any needles or any body fluid/blood on the plastic. She denies any fevers or chills. The patient states that she immediately washed her hands with warm water and soap and expressed blood from the area for several minutes. Past History - Medical History Allergies/Adverse Reactions: Allergies Allergy/AdvReac Type Severity Reaction Status Date / Time Iodinated Contrast Media Allergy Intermediate Verified 04/05/20 12:56 iodine [Iodine] Allergy Intermediate Itching Verified 04/05/20 12:56 pineapple Allergy Verified 04/05/20 12:56 Home Medications: Ambulatory Orders Metoprolol Succinate [Toprol Xl] 50 mg PO DAILY 08/22/19 Pantoprazole Sodium 40 mg PO DAILY 10/17/19 Gabapentin 300 mg PO HS 02/12/20 Gabapentin [Neurontin -] 300 mg PO HS capsule 02/12/20 Cephalexin [Keflex] 500 mg PO TID 7 Days #21 capsule 04/05/20 Anemia: No Asthma: No Cancer: No Cardiac Disorders: No CVA: No COPD: No CHF: No Dementia: No Diabetes: No GI Disorders: Yes (H/O PANCREATITIS) Disorders: Yes (CYSTITIS) HTN: Yes Hypercholesterolemia: Yes Liver Disease: No Psychiatric Problems: Yes (depression) Seizures: No Thyroid Disease: No - Surgical History Abdominal Surgery: No Appendectomy: No Cardiac Surgery: No Cholecystectomy: No Lung Surgery: No Neurologic Surgery: No Orthopedic Surgery: No - Immunization History Td Vaccination: Yes TDAP Vaccination: Yes Immunization Up to Date: Yes - Psycho-Social/Smoking History Smoking Status: No Smoking History: Never smoked Have you smoked in the past 12 months: No Number of Cigarettes Smoked Daily: 0 - Substance Abuse Hx (Audit-C & DAST Scrn) How often the patient has a drink containing alcohol: Never Score: In Men: 4 or > Positive; In Women: 3 or > Positive: 0 Screen Result (Pos requires Nsg. Audit-10AR): Negative Review of Systems - Review of Systems Comments:: 04/05/20 13:42 - Review of Systems Able to Perform ROS?: Yes Constitutional: No: Fever, Chills, Loss of Appetite, Night Sweats, Weakness HEENTM: No: Eye Pain, Vision changes, Ear Pain, Throat Pain, Throat Swelling, Mouth Pain, Difficulty Swallowing Respiratory: No: Cough, Shortness of Breath, Wheezing, Sputum Production Cardiac (ROS): No: Chest Pain, Chest Tightness, Palpitations, Irregular Heart Beat, Edema ABD/GI: No: Nausea, Vomiting, Abdominal Pain, Diarrhea : No Dysuria, No Hematuria, No Frequency, No Urgency Musculoskeletal: No: Muscle Pain, Back Pain, Joint Pain, Muscle Weakness, Neck Pain Integumentary: No: Lesions, Rash; positive: Puncture wound to the right hand Neurological: No: Headache, Numbness, Tingling, Weakness, Speech Difficulties *Physical Exam - Vital Signs Last Vital Signs Temp Pulse Resp BP Pulse Ox 97.7 F 85 18 145/73 100 04/05/20 12:56 04/05/20 12:56 04/05/20 12:56 04/05/20 12:56 04/05/20 12:56 - Physical Exam 04/05/20 13:42 - Physical Exam General Appearance: Nourished, Appropriately Dressed, No Distress HEENT: EOMI, Normal Voice, Hearing Grossly Normal Neck: Supple, No Lymphadenopathy (R), No Lymphadenopathy (L), No Rigidity, No Decreased range of motion Respiratory/Chest: Lungs Clear, Normal Breath Sounds. No Respiratory Distress, No Accessory Muscle Use Cardiovascular: Regular Rhythm, Regular Rate, S1, S2 Musculoskeletal: Normal Inspection. No Decreased Range of Motion Extremity: Normal Capillary Refill, Normal Inspection Integumentary: Normal Color, Dry. No Rash; 2 small puncture wounds appreciated at the base of the right middle finger, palmar aspect. No active bleeding. No sign of infection. A small piece of plastic was appreciated that the patient brought with her to the emergency department. There were 2 sharp ends on the piece of plastic. The piece of plastic is not consistent with any medical equipment that we used in the emergency department. No tenderness over the puncture wounds. Neurologic: budget analyst II-XII NML intact, Fully Oriented, Alert, Normal Mood/Affect, Normal Response Medical Decision Making - Medical Decision Making 04/05/20 13:43 Assessment: Patient is a 59-year-old female who presents to the ED for a puncture wound to the right hand with a piece of plastic while at work. Plan: -Tetanus booster ordered -1 dose of Keflex given in the ED -We will discharge the patient on Keflex -Postexposure prophylaxis not indicated as there was no cross contamination with body fluids -The patient understands and agrees with this treatment plan and is stable for discharge. She will follow-up with employee health or her primary doctor within 1 to 2 days for repeat evaluation. Discharge - Discharge Information Problems reviewed: Yes Clinical Impression/Diagnosis: Puncture wound of right hand Qualifiers: Encounter type: initial encounter Foreign body presence: without foreign body Qualified Code(s): S61.431A - Puncture wound without foreign body of right hand, initial encounter Condition: Stable Disposition: HOME - Additional Discharge Information Prescriptions: Cephalexin [Keflex] 500 mg PO TID 7 Days #21 capsule - Follow up/Referral Referrals: Celestino Ross [Primary Care Provider] - Call tomorrow - Patient Discharge Instructions Patient Printed Discharge Instructions: DI for Puncture Wound Additional Instructions: Keep the area clean and wash twice daily with warm water and soap. Do not apply any ointments or salves to the area. Keep the area covered while at work or away from home. If at home and relaxing you can keep the area uncovered. Take the antibiotics as prescribed and complete the entire course. Your first dose of antibiotics was given to you today in the emergency department so you can start with this evening's dose. Be sure to follow-up with your primary doctor or employee health for repeat evaluation within the next 1 to 2 days. - Post Discharge Activity Work/Back to School Note: Back to Work
--- OUTSIDE RECORDS SUMMARY | 2020-04-05 15:24 | XMS ---
:1960 Author Organization [facility] Support Name Relationship Address Phone [facility], [facility] Unavailable [address] [phone] [place] [address] [facility] Unavailable [address] [place] [address] RAYMOND KENNY SON [address] [place] [address] MINA KENNY [address] [place] [address] MINA KENNY Spouse [address] [place] [address] Re-disclosure Warning The records that you are about to access may contain information from federally- assisted alcohol or drug abuse programs. If such information is present, then the following federally mandated warning applies: This information has been disclosed to you from records protected by federal confidentiality rules (42 CFR part 2). The federal rules prohibit you from making any further disclosure of this information unless further disclosure is expressly permitted by the written consent of the person to whom it pertains or as otherwise permitted by 42 CFR part 2. A general authorization for the release of medical or other information is NOT sufficient for this purpose. The Federal rules restrict any use of the information to criminally investigate or prosecute any alcohol or drug abuse patient.The records that you are about to access may contain highly sensitive health information, the redisclosure of which is protected by Article 27-F of the [facility] Public Health law. If you continue you may haveaccess to information: Regarding HIV / AIDS; Provided by facilities licensed or operated by the [facility] Office of Mental Health; or Provided by the [facility] Office for People With Developmental Disabilities. If such information is present, then the following [facility] mandated warning applies: This information has been disclosed to you from confidential records which are protected by state law. State law prohibits you from making any further disclosure of this information without the specific written consent of the person to whom it pertains, or as otherwise permitted by law. Any unauthorized further disclosure in violation of state law may result in a fine or residential sentence or both. A general authorization for the release of medical or other information is NOT sufficient authorization for further disclosure. Insurance Providers Payer name Policy type Policy ID Covered Covered constitution party's Policy P abelino / Coverage constitution party ID relationship to [employer] ormation type sarmiento HOSP. [id number] SP [id number] EMPLOYEE JOB RELATED INJ [facility] 1199 - [id number] SP [id number] [facility] [employer] [facility] [id number] [facility] 1199 - [id number] SP [id number] [facility] JAKOB [facility] Results ID Date Data Source [id number] 02/11/2020 03:21:00 PM EDT [facility] Name Value Range Interpretation Description Data Sup porting Code Source(s) Document(s ) SARS [facility] coronavirus 2 RNA This lab was ordered by [facility] and reported by [facility]. ID Date Data Source [id number] 10/18/2019 06:50:00 AM EDT [facility] Name Value Range Interpretation Description Data Sup porting Code Source(s) Document(s ) SARS [facility] CORONAVIRUS 2 RNA This lab was ordered by [facility] and reported by [facility]. Procedure
== END 2020-04-05 13:47 | disposition home or self-care (01) ==
LOC: JERFT 12:28
PROC: 3E0234Z Introduction of Serum, Toxoid and Vaccine into Muscle, Percutaneous Approach (ICD-10-PCS; principal; 2020-04-05)
DX: S61.431A Puncture wound without foreign body of right hand, initial encounter (principal)
CPT/HCPCS: 90715; 99284-25

== ENCOUNTER 2020-04-18 00:06 | Emergency (ER) | payer OTHER ==
[2020-04-18 01:29] VITALS: BP 180/87; PULSE 83; TEMP 98.9; BMI 25.6
--- OUTSIDE RECORDS SUMMARY | 2020-04-18 01:32 | XMS ---
:1960 Author Organization [facility] Support Name Relationship Address Phone [facility], [facility] Unavailable [address] [facility] [place] [address] [facility] Unavailable [address] [place] [address] RAYMOND KENNY SON [address] [employer] [address] [place] [address] MINA KENNY [address] [place] [address] MINA KENNY Spouse [address] [place] [address] Re-disclosure Warning The records that you are [...] is protected by Article 27-F of the [facility] Public Health law. If you continue you may haveaccess to information: Regarding HIV / AIDS; Provided by facilities licensed or operated by the [facility] Office of Mental Health; or Provided by the [facility] Office for People With Developmental Disabilities. If such information is present, then the following [facility] mandated warning applies: This information has [...] law may result in a fine or shelter sentence or both. A general authorization for the release of medical or other information is NOT sufficient authorization for further disclosure. Insurance Providers Payer name Policy type Policy ID Covered Covered constitution party's Policy P abelino / Coverage constitution party ID relationship to [employer] ormation type sarmiento HOSP. [id number] SP [id number] EMPLOYEE JOB RELATED INJ [facility] 1199 - [id number] SP [id number] [facility] [employer] [facility] [id number] [employer] BENEFITS [facility] 1199 - [id number] SP [id number] [facility] JAKOB [facility] Results ID Date Data Source [id number] 02/11/2020 03:21:00 PM EDT [facility] Name Value Range Interpretation Description Data Sup porting Code Source(s) Document(s ) SARS [facility] coronavirus 2 RNA This lab was ordered by [facility] and reported by [facility]. ID Date Data Source [id number] 10/18/2019 06:50:00 AM EDT [facility] Name Value Range Interpretation Description Data Sup porting Code Source(s) Document(s ) SARS [facility] CORONAVIRUS 2 RNA This lab was ordered by [facility] and reported by [facility]. Procedure
[2020-04-18 02:04] LABS: EPI CELLS 4 /uL (0-25.1); HYALINE CASTS 0 /uL (0-3.1); PH,URINE 6.5 (5.0-8.0); URINE APPEARANCE CLEAR; URINE BACTERIA 11 /uL (0-1359); URINE BILIRUBIN NEGATIVE (NEGATIVE); URINE COLOR YELLOW; URINE GLUCOSE (UA) NEGATIVE (NEGATIVE); URINE KETONE NEGATIVE (NEGATIVE); URINE LEUK ESTERASE TRACE (NEGATIVE); URINE NITRITE NEGATIVE (NEGATIVE); URINE PROTEIN NEGATIVE (NEGATIVE); URINE RBC 3 /uL (0-23.9); URINE UROBILINOGEN 0.2 mg/dL (0.2-1.0); URINE WBC 6 /uL (0-25.8)
--- NOTE | 2020-04-18 02:33 | PDOC ---
Attending Attestation - Resident Resident Name: Amelia Samaniego - ED Attending Attestation I have performed the following: I have examined & evaluated the patient, The case was reviewed & discussed with the resident, I agree w/resident's findings & plan - HPI HPI: 04/18/20 03:58 Pt comes worried that she was taking truvada BID rather than QD; she thinks her urine has been affected and thus her kidneys. - Physicial Exam PE: 04/18/20 03:59 Normal exam agree with resident exam - Medical Decision Making 04/18/20 03:56 We spoke to [facility] poisons and they tell us that truvada BID is okay 04/18/20 04:00 UA normal labs normal EKH normal exam and vitals normal Discharge - Discharge Information Problems reviewed: Yes Clinical Impression/Diagnosis: Accidental medication error Qualifiers: Encounter type: initial encounter Qualified Code(s): T50.901A - Poisoning by unspecified drugs, medicaments and biological substances, accidental (unintentional), initial encounter Condition: Stable Disposition: HOME - Follow up/Referral - Patient Discharge Instructions Patient Printed Discharge Instructions: Dos and Don'ts for Prescription Medications Additional Instructions: You came into the emergency department. Lab work and EKG did not indicate acute pathology. Eat and hydrate throughout the day to prevent dehydration and low blood sugar levels. Continue taking home medications as prescribed by your physician. Follow up with your primary care physician within 72 hours. Call and make an appointment to further evaluate your symptoms. Your workup is not complete until you do so. Immediate medical attention is required if you have: any chest pain, palpitations, shortness of breath, severe headaches, changes in vision, episodes of fainting, focal numbness or weakness, any severe abdominal pain, any black tarry stool, or any new or concerning symptoms. If you think you are having an emergency, call for emergency medical services or present to the emergency department right away. - Post Discharge Activity Work/Back to School Note: Back to Work
--- NOTE | 2020-04-18 03:06 | PDOC ---
History of Present Illness - General Chief Complaint: Urinary Problem Stated Complaint: ABNORMAL URINE Time Seen by Provider: 04/18/20 02:31 - History of Present Illness Initial Comments: HPI: 59yo F with PMH of HTN and depression presenting with concern for taking too much medication. Patient was inadvertently stuck with a needle at work and was started on truvada and isentress for HIV prophylaxis. Since that time she has felt some adverse effects with nausea and diarrhea. Last night she realized her pill bottle of truvada had only four pills remaining and found that she had been taking the medication twice a day instead of once daily. Patient is concerned about her kidney function because her urine has been very clear. Has been very anxious about this. No fevers, chills, chest pain, or shortness of breath. ROS: Constitutional: no fever, no chills HEENT: no throat pain, no dysphagia Cardiovascular: no chest pain, no palpitations Respiratory: no cough, no shortness of breath Gastrointestinal: +nausea, +diarrhea Genitourinary: no dysuria, no hematuria Musculoskeletal: no myalgia, no arthralgia Skin: no rash, no itching Neurologic: no headache, no weakness Psych: no agitation, no anxiety PE: General: Awake, alert, and fully oriented, anxious Head: No signs of trauma Eyes: EOMI, sclera anicteric ENT: Moist mucus membranes Neck: Normal ROM, supple Lungs: Lungs clear, Normal breath sounds Cardio: Regular rhythm, S1 and S2 present Abdomen: Soft, nontender. No CVA tenderness Extremities: Normal range of motion, Distal pulses present Skin: Warm, Dry, normal turgor Neurologic: Cranial nerves II through XII grossly intact. Normal speech ED Course/MDM: Discussed case with [place] Poison control, Mr. Barrientos, regarding patient taking double the dose of truvada for 11 days Nothing to do-- even at high doses, patients will at most experience stomach discomfort Will obtain EKG and basic labs 04/18/20 03:05 EKG: rate 64, QTc 433, NSR Laboratory Tests 04/18/20 01:45 Urine Color Yellow Urine Appearance Clear Urine pH 6.5 Ur Specific [place] 1.002 L Urine Protein Negative Urine Glucose (UA) Negative Urine Ketones Negative Urine Blood Negative Urine Nitrite Negative Urine Bilirubin Negative Urine Urobilinogen 0.2 Ur Leukocyte Esterase Trace Urine WBC (Auto) 6 Urine RBC (Auto) 3 Urine Casts (Auto) 0 U Epithel Cells (Auto) 4 Urine Bacteria (Auto) 11 Low suspicion for infection as UA is only with trace LE and 6 WBC (with somewhat contaminated sample) In addition, patient does not have dysuria, frequency Will follow urine culture CBC WBC 7.5 K/mm3 (4.0-10.0) 04/18/20 03:07 RBC 4.15 M/mm3 (3.60-5.2) 04/18/20 03:07 Hgb 11.6 GM/dL (10.7-15.3) 04/18/20 03:07 Hct 34.9 % (32.4-45.2) 04/18/20 03:07 MCV 84.2 fl (80-96) 04/18/20 03:07 MCH 28.0 pg (25.7-33.7) 04/18/20 03:07 MCHC 33.2 g/dl (32.0-36.0) 04/18/20 03:07 RDW 14.6 % (11.6-15.6) 04/18/20 03:07 Plt Count 252 K/MM3 (134-434) 04/18/20 03:07 MPV 7.3 fl (7.5-11.1) L 04/18/20 03:07 Absolute Neuts (auto) 5.2 K/mm3 (1.5-8.0) 04/18/20 03:07 Neutrophils % 68.9 % (42.8-82.8) D 04/18/20 03:07 Lymphocytes % 26.1 % (8-40) D 04/18/20 03:07 Monocytes % 4.4 % (3.8-10.2) 04/18/20 03:07 Eosinophils % 0.1 % (0-4.5) 04/18/20 03:07 Basophils % 0.5 % (0-2.0) 04/18/20 03:07 Nucleated RBC % 0 % (0-0) 04/18/20 03:07 Sodium 140 mmol/L (136-145) 04/18/20 03:07 Potassium 4.0 mmol/L (3.5-5.1) 04/18/20 03:07 Chloride 105 mmol/L (98-107) 04/18/20 03:07 Carbon Dioxide 30 mmol/L (21-32) 04/18/20 03:07 Anion Gap 5 MMOL/L (8-16) L 04/18/20 03:07 BUN 16.4 mg/dL (7-18) 04/18/20 03:07 Creatinine 0.8 mg/dL (0.55-1.3) 04/18/20 03:07 Est GFR (CKD-EPI)AfAm 92.22 04/18/20 03:07 Est GFR (CKD-EPI)NonAf 79.57 04/18/20 03:07 Random Glucose 108 mg/dL (74-106) H 04/18/20 03:07 Calcium 9.1 mg/dL (8.5-10.1) 04/18/20 03:07 Total Bilirubin 0.2 mg/dL (0.2-1) 04/18/20 03:07 AST 28 U/L (15-37) 04/18/20 03:07 ALT 39 U/L (13-61) 04/18/20 03:07 Alkaline Phosphatase 105 U/L (45-117) 04/18/20 03:07 Total Protein 7.3 g/dl (6.4-8.2) 04/18/20 03:07 Albumin 3.8 g/dl (3.4-5.0) 04/18/20 03:07 No leukocytosis or anemia CMP Sodium 140 mmol/L (136-145) 04/18/20 03:07 Potassium 4.0 mmol/L (3.5-5.1) 04/18/20 03:07 Chloride 105 mmol/L (98-107) 04/18/20 03:07 Carbon Dioxide 30 mmol/L (21-32) 04/18/20 03:07 Anion Gap 5 MMOL/L (8-16) L 04/18/20 03:07 BUN 16.4 mg/dL (7-18) 04/18/20 03:07 Creatinine 0.8 mg/dL (0.55-1.3) 04/18/20 03:07 Est GFR (CKD-EPI)AfAm 92.22 04/18/20 03:07 Est GFR (CKD-EPI)NonAf 79.57 04/18/20 03:07 Random Glucose 108 mg/dL (74-106) H 04/18/20 03:07 Calcium 9.1 mg/dL (8.5-10.1) 04/18/20 03:07 Total Bilirubin 0.2 mg/dL (0.2-1) 04/18/20 03:07 AST 28 U/L (15-37) 04/18/20 03:07 ALT 39 U/L (13-61) 04/18/20 03:07 Alkaline Phosphatase 105 U/L (45-117) 04/18/20 03:07 Total Protein 7.3 g/dl (6.4-8.2) 04/18/20 03:07 Albumin 3.8 g/dl (3.4-5.0) 04/18/20 03:07 Electrolytes unremarkable Normal Cr No transaminitis Poison control does not have any acute recommendations at this time Patient to follow up with infectious disease specialist Return precautions Stable for discharge Past History - Medical History Allergies/Adverse Reactions: Allergies Allergy/AdvReac Type Severity Reaction Status Date / Time Iodinated Contrast Media Allergy Intermediate Verified 04/05/20 12:56 iodine [Iodine] Allergy Intermediate Itching Verified 04/05/20 12:56 pineapple Allergy Verified 04/05/20 12:56 Home Medications: Ambulatory Orders Metoprolol Succinate [Toprol Xl] 50 mg PO DAILY 08/22/19 Pantoprazole Sodium 40 mg PO DAILY 10/17/19 Gabapentin [Neurontin -] 300 mg PO HS capsule 02/12/20 Cephalexin [Keflex] 500 mg PO TID 7 Days #21 capsule 04/05/20 Atorvastatin Ca [Lipitor] 40 mg PO HS 04/06/20 Emtricitabine/Tenofovir (Tdf) [Truvada 200 mg-300 mg Tablet] 1 each PO DAILY #28 tablet 04/06/20 Ezetimibe [Zetia -] 10 mg PO DAILY 04/06/20 Lurasidone HCl [Latuda -] 20 mg PO DAILY 04/06/20 Raltegravir Potassium [Isentress] 1 tab PO BID #56 tablet 04/06/20 Anemia: No Asthma: No Cancer: No Cardiac Disorders: No CVA: No COPD: No CHF: No Dementia: No Diabetes: No GI Disorders: Yes (H/O PANCREATITIS) Disorders: Yes (CYSTITIS) HTN: Yes Hypercholesterolemia: Yes Liver Disease: No Psychiatric Problems: Yes (depression) Seizures: No Thyroid Disease: No - Surgical History Abdominal Surgery: No Appendectomy: No Cardiac Surgery: No Cholecystectomy: No Lung Surgery: No Neurologic Surgery: No Orthopedic Surgery: No - Reproductive History Is Patient Now?: No - Immunization History Td Vaccination: Yes TDAP Vaccination: Yes Immunization Up to Date: Yes - Psycho-Social/Smoking History Smoking Status: No Smoking History: Unknown if ever smoked Have you smoked in the past 12 months: No Number of Cigarettes Smoked Daily: 0 - Substance Abuse Hx (Audit-C & DAST Scrn) How often the patient has a drink containing alcohol: Monthly or less Score: In Men: 4 or > Positive; In Women: 3 or > Positive: 1 Screen Result (Pos requires Nsg. Audit-10AR): Negative In the last yr the pt used illegal drug/Rx for NonMed reason: No Score: Yes response is considered Positive: 0 Screen Result (Positive result requires Nsg. DAST-10): Negative *Physical Exam - Vital Signs Last Vital Signs Temp Pulse Resp BP Pulse Ox 98.9 F 83 19 180/87 H 100 04/18/20 01:10 04/18/20 01:10 04/18/20 01:10 04/18/20 01:10 04/18/20 01:10 ED Treatment Course - LABORATORY CBC & Chemistry Diagram: 04/18/20 03:07 04/18/20 03:07 - ADDITIONAL ORDERS Additional order review: Laboratory Results 04/18/20 01:45 Urine Color Yellow Urine Appearance Clear Urine pH 6.5 Ur Specific [place] 1.002 L Urine Protein Negative Urine Glucose (UA) Negative Urine Ketones Negative Urine Blood Negative Urine Nitrite Negative Urine Bilirubin Negative Urine Urobilinogen 0.2 Ur Leukocyte Esterase Trace Urine WBC (Auto) 6 Urine RBC (Auto) 3 Urine Casts (Auto) 0 U Epithel Cells (Auto) 4 Urine Bacteria (Auto) 11 Discharge - Discharge Information Problems reviewed: Yes Clinical Impression/Diagnosis: Accidental medication error Qualifiers: Encounter type: initial encounter Qualified Code(s): T50.901A - Poisoning by unspecified drugs, medicaments and biological substances, accidental (unintentional), initial encounter Condition: Stable Disposition: HOME - Follow up/Referral - Patient Discharge Instructions Patient Printed Discharge Instructions: Dos and Don'ts for Prescription Medications Additional Instructions: You came into the emergency department. Lab work and EKG did not indicate acute pathology. Eat and hydrate throughout the day to prevent dehydration and low blood sugar levels. Continue taking home medications as prescribed by your physician. Follow up with your primary care physician within 72 hours. Call and make an appointment to further evaluate your symptoms. Your workup is not complete until you do so. Immediate medical attention is required if you have: any chest pain, palpitations, shortness of breath, severe headaches, changes in vision, episodes of fainting, focal numbness or weakness, any severe abdominal pain, any black tarry stool, or any new or concerning symptoms. If you think you are having an emergency, call for emergency medical services or present to the emergency department right away. - Post Discharge Activity Work/Back to School Note: Back to Work
[2020-04-18 03:19] LABS: BASO % 0.5 % (0-2.0); EOS % 0.1 % (0-4.5); HEMATOCRIT 34.9 % (32.4-45.2); HEMOGLOBIN 11.6 GM/dL (10.7-15.3); LYMPH % 26.1 % (8-40); MCHC 33.2 g/dl (32.0-36.0); MEAN CELL VOLUME 84.2 fl (80-96); MEAN PLT VOLUME 7.3 fl (7.5-11.1); MONO % 4.4 % (3.8-10.2); NEUT % 68.9 % (42.8-82.8); PLATELET COUNT 252 K/MM3 (134-434); RBC 4.15 M/mm3 (3.60-5.2); RDW 14.6 % (11.6-15.6); WHITE BLOOD COUNT 7.5 K/mm3 (4.0-10.0)
[2020-04-18 03:44] LABS: ALBUMIN 3.8 g/dl (3.4-5.0); BILIRUBIN,TOTAL 0.2 mg/dL (0.2-1); BLOOD UREA NITROGEN 16.4 mg/dL (7-18); CALCIUM 9.1 mg/dL (8.5-10.1); CREATININE 0.8 mg/dL (0.55-1.3); TOT PROT 7.3 g/dl (6.4-8.2)
--- NOTE | 2020-04-18 17:01 | EKG ---
Test Reason : Blood Pressure : / mmHG Vent. Rate : 064 BPM Atrial Rate : 064 BPM P-R Int : 142 ms QRS Dur : 088 ms QT Int : 420 ms P-R-T Axes : 071 040 040 degrees QTc Int : 433 ms NORMAL SINUS RHYTHM NORMAL ECG WHEN COMPARED WITH ECG OF 12-FEB-2020 00:20, NO SIGNIFICANT CHANGE WAS FOUND Confirmed by CAROLINA CONROY MD ([id number]) on 04/18/2020 5:01:30 PM Referred By: Confirmed By:CAROLINA CONROY MD
[2020-04-19] MEDS ORDERED: EMTRICITABINE 200MG/TENOFOVIR 300MG PO SCH (10:00)
== END 2020-04-18 04:09 | disposition home or self-care (01) ==
LOC: JER 00:06
DX: T50.901A Poisoning by unspecified drugs, medicaments and biological substances, accidental (unintentional), initial encounter (principal)
CPT/HCPCS: 36415; 80053; 81003; 85025; 87077; 87086; 93005; 93010; 99284-25

== ENCOUNTER 2021-02-05 07:22 | Emergency (ER) | payer OTHER ==
[2021-02-05 07:33] VITALS: BP 144/73; PULSE 63; TEMP 98.3; BMI 25.6
[2021-02-05] MEDS ORDERED: IBUPROFEN 600 MG TABLET (FP) PO ONE ×2 (08:15→08:32)
[2021-02-05] MEDS ORDERED: METOCLOPRAMIDE HCL 10 MG TABLET (FP) PO ONE ×2 (08:15→08:32)
[2021-02-05] MEDS ORDERED: PANTOPRAZOLE 40 MG TABLET PO ONE (08:17)
[2021-02-05] MEDS ORDERED: PANTOPRAZOLE 40 MG TABLET ONE (08:32)
== END 2021-02-05 10:35 | disposition home or self-care (01) ==
LOC: JER 07:22
DX: R51.9 Headache, unspecified (principal)
CPT/HCPCS: 99283-25

== ENCOUNTER 2021-05-18 05:06 | Day surgery (SDC) | payer OTHER ==
[2021-05-16 14:48] VITALS: BMI 25.9
[2021-05-18 08:43] VITALS: TEMP 97.3
[2021-05-18 09:10] VITALS: PULSE 58
[2021-05-18 13:07] VITALS: BP 137/57
== END 2021-05-18 10:00 | disposition home or self-care (01) ==
LOC: JASU-ENDO 05:06
PROVIDERS: ATTEND Internal Medicine Gastroenterology
PROC: 0DB78ZX Excision of Stomach, Pylorus, Via Natural or Artificial Opening Endoscopic, Diagnostic (ICD-10-PCS; 2021-05-18)
PROC: 0DBP8ZX Excision of Rectum, Via Natural or Artificial Opening Endoscopic, Diagnostic (ICD-10-PCS; principal; 2021-05-18 08:00)
DX: Z12.11 Encounter for screening for malignant neoplasm of colon (principal); K29.50 Unspecified chronic gastritis without bleeding; A63.0 Anogenital (venereal) warts; I10 Essential (primary) hypertension
CPT/HCPCS: 88305-TC; 88342-TC

== ENCOUNTER 2021-06-23 17:06 | Emergency (ER) | payer OTHER ==
[2021-06-23 17:15] VITALS: TEMP 98.5; BMI 25.6
[2021-06-23] MEDS ORDERED: SODIUM CHLORIDE 0.9% 500 ML INFUS.BAG IV ONE (18:07)
[2021-06-23] MEDS ORDERED: MAG HYDROX/AL HYDROX/SIMETH 30 ML UNIT-DOSE CUP PO ONE (18:07)
[2021-06-23] MEDS ORDERED: ONDANSETRON 4 MG/2 ML VIAL IVPUSH ONE (18:07)
[2021-06-23] MEDS ORDERED: ACETAMINOPHEN 1000 MG/100 ML VIAL IVPB ONE (18:07)
[2021-06-23 18:53] LABS: EPI CELLS 1 /uL (0-25.1); HYALINE CASTS 0 /uL (0-3.1); PH,URINE 7.5 (5.0-8.0); URINE APPEARANCE CLEAR; URINE BACTERIA 0 /uL (0-1359); URINE BILIRUBIN NEGATIVE (NEGATIVE); URINE COLOR YELLOW; URINE GLUCOSE (UA) NEGATIVE (NEGATIVE); URINE KETONE NEGATIVE (NEGATIVE); URINE LEUK ESTERASE NEGATIVE (NEGATIVE); URINE NITRITE NEGATIVE (NEGATIVE); URINE PROTEIN NEGATIVE (NEGATIVE); URINE RBC 7 /uL (0-23.9); URINE UROBILINOGEN 0.2 mg/dL (0.2-1.0); URINE WBC 2 /uL (0-25.8)
[2021-06-23] MEDS ORDERED: FAMOTIDINE 20 MG/50 ML IVPB 20 MG/50 ML MG IVPB ONE ×2 (19:02→19:17)
[2021-06-23] MEDS ORDERED: MAG HYDROX/AL HYDROX/SIMETH 30 ML UNIT-DOSE CUP ONE (19:02)
[2021-06-23] MEDS ORDERED: ACETAMINOPHEN INJECTION 100 ML IVPB ONE (19:02)
[2021-06-23] MEDS ORDERED: ONDANSETRON 4 MG/2 ML VIAL ONE (19:02)
[2021-06-23] MEDS ORDERED: FAMOTIDINE 20 MG/50 ML IVPB 20 MG/50 ML MG IVPB SCH ×2 (19:17→22:00)
[2021-06-23] MEDS ORDERED: FAMOTIDINE 10 MG TABLET PO ONE (19:58)
[2021-06-23] MEDS ORDERED: ACETAMINOPHEN 325 MG TABLET (FP) PO ONE (19:59)
[2021-06-23] MEDS ORDERED: ONDANSETRON 4 MG TABLET PO ONE (20:00)
[2021-06-23] MEDS ORDERED: FAMOTIDINE 10 MG TABLET ONE (20:03)
[2021-06-23] MEDS ORDERED: ACETAMINOPHEN 325 MG TABLET (FP) ONE (20:03)
[2021-06-23] MEDS ORDERED: ONDANSETRON *ODT* 4 MG TABLET ONE (20:03)
[2021-06-23 20:31] LABS: BASO % 0.5 % (0-2.0); EOS % 0.5 % (0-4.5); HEMATOCRIT 37.1 % (32.4-45.2); LYMPH % 40.1 % (8-40); MCH 27.3 pg (25.7-33.7); MCHC 32.4 g/dl (32.0-36.0); MEAN CELL VOLUME 84.3 fl (80-96); MEAN PLT VOLUME 7.3 fl (7.5-11.1); MONO % 6.4 % (3.8-10.2); NEUT % 52.5 % (42.8-82.8); PLATELET COUNT 296 10^3/uL (134-434); RDW 15.2 % (11.6-15.6); WHITE BLOOD COUNT 6.7 K/mm3 (4.0-10.0)
[2021-06-23 20:49] LABS: CHLORIDE 104 mmol/L (98-107); SODIUM 141 mmol/L (136-145)
[2021-06-23 20:51] LABS: ALBUMIN 3.8 g/dl (3.4-5.0); ANION GAP 8 MMOL/L (8-16); BLOOD UREA NITROGEN 9.4 mg/dL (7-18); CALCIUM 9.6 mg/dL (8.5-10.1); CO2 28 mmol/L (21-32); GLUCOSE,RANDOM 79 mg/dL (74-106); LIPASE 189 U/L (73-393)
[2021-06-23 20:55] LABS: CREATININE 0.7 mg/dL (0.55-1.3); SGOT/AST 18 U/L (15-37); SGPT/ALT 20 U/L (13-61)
[2021-06-23 20:56] LABS: BILIRUBIN,TOTAL 0.4 mg/dL (0.2-1)
[2021-06-23 20:57] LABS: ALK PHOS 102 U/L (45-117); TOT PROT 7.6 g/dl (6.4-8.2)
[2021-06-23 22:38] VITALS: BP 129/90; PULSE 66
== END 2021-06-23 22:05 | disposition home or self-care (01) ==
LOC: JER 17:06
PROC: 3E033NZ Introduction of Analgesics, Hypnotics, Sedatives into Peripheral Vein, Percutaneous Approach (ICD-10-PCS; principal; 2021-06-23)
PROC: 3E033GC Introduction of Other Therapeutic Substance into Peripheral Vein, Percutaneous Approach (ICD-10-PCS; 2021-06-23)
PROC: 3E033GC Introduction of Other Therapeutic Substance into Peripheral Vein, Percutaneous Approach (ICD-10-PCS; 2021-06-23)
DX: R10.9 Unspecified abdominal pain (principal)
CPT/HCPCS: 36415; 76705-TC; 80053; 81003; 83690; 84484; 85025; 87086; 93005; 93010; 99285-25; C9803; U0003; U0005

== ENCOUNTER 2021-06-25 09:57 | Emergency (ER) | payer OTHER ==
[2021-06-25 10:06] VITALS: BMI 25.6
[2021-06-25] MEDS ORDERED: CASIRIVIMAB/IMDEVIMAB 10 ML in SODIUM CHLORIDE 100 ML IVPB ONE (10:12)
[2021-06-25] MEDS ORDERED: ONDANSETRON 4 MG/2 ML VIAL IVPUSH ONE (12:01)
[2021-06-25] MEDS ORDERED: ACETAMINOPHEN 325 MG TABLET (FP) ONE (12:32)
[2021-06-25] MEDS ORDERED: ONDANSETRON *ODT* 4 MG TABLET ONE (12:33)
[2021-06-25 12:49] VITALS: BP 139/72; PULSE 65; TEMP 98.6
== END 2021-06-25 16:39 | disposition home or self-care (01) ==
LOC: JER 09:57
PROC: 3E033GC Introduction of Other Therapeutic Substance into Peripheral Vein, Percutaneous Approach (ICD-10-PCS; principal; 2021-06-25)
DX: U07.1 COVID-19 (principal)
CPT/HCPCS: 99284-25; Q0240

== ENCOUNTER 2021-09-17 18:46 | Emergency (ER) | payer OTHER ==
[2021-09-17 19:03] VITALS: BP 117/76; PULSE 60; TEMP 97.6; BMI 25.6
[2021-09-17] MEDS ORDERED: SODIUM CHLORIDE 0.9% 500 ML INFUS.BAG IV ONE (19:36)
[2021-09-17] MEDS ORDERED: ACETAMINOPHEN 1000 MG/100 ML BAG IVPB ONE (19:37)
[2021-09-17] MEDS ORDERED: ACETAMINOPHEN INJECTION 100 ML IVPB ONE (19:42)
[2021-09-17 20:16] LABS: BASO % 0.7 % (0-2.0); EOS % 0.6 % (0-4.5); HEMATOCRIT 36.2 % (32.4-45.2); HEMOGLOBIN 11.6 GM/dL (10.7-15.3); LYMPH % 45.8 % (8-40); MCH 26.8 pg (25.7-33.7); MCHC 32.1 g/dl (32.0-36.0); MEAN CELL VOLUME 83.6 fl (80-96); MONO % 7.5 % (3.8-10.2); NEUT % 45.4 % (42.8-82.8); PLATELET COUNT 272 10^3/uL (134-434); RBC 4.33 M/mm3 (3.60-5.2); RDW 14.8 % (11.6-15.6); WHITE BLOOD COUNT 4.4 K/mm3 (4.0-10.0)
[2021-09-17 20:39] LABS: ALBUMIN 3.8 g/dl (3.4-5.0); CALCIUM 9.2 mg/dL (8.5-10.1)
[2021-09-17 20:40] LABS: BLOOD UREA NITROGEN 16.2 mg/dL (7-18)
[2021-09-17] MEDS ORDERED: MECLIZINE HCL 25 MG TABLET (FP) PO ONE (20:42)
[2021-09-17 20:43] LABS: CREATININE 0.8 mg/dL (0.55-1.3)
[2021-09-17 20:44] LABS: BILIRUBIN,TOTAL 0.5 mg/dL (0.2-1)
[2021-09-17] MEDS ORDERED: MECLIZINE HCL 25 MG TABLET (FP) ONE (20:54)
[2021-09-17 22:05] LABS: EPI CELLS 2 /uL (0-25.1); HYALINE CASTS 0 /uL (0-3.1); PH,URINE 6.5 (5.0-8.0); URINE APPEARANCE CLEAR; URINE BACTERIA 27 /uL (0-1359); URINE BILIRUBIN NEGATIVE (NEGATIVE); URINE COLOR YELLOW; URINE GLUCOSE (UA) NEGATIVE (NEGATIVE); URINE KETONE NEGATIVE (NEGATIVE); URINE LEUK ESTERASE 1+ (NEGATIVE); URINE NITRITE NEGATIVE (NEGATIVE); URINE PROTEIN NEGATIVE (NEGATIVE); URINE RBC 2 /uL (0-23.9); URINE UROBILINOGEN 0.2 mg/dL (0.2-1.0); URINE WBC 14 /uL (0-25.8)
== END 2021-09-18 00:50 | disposition home or self-care (01) ==
LOC: JER 18:46
PROC: 3E033GC Introduction of Other Therapeutic Substance into Peripheral Vein, Percutaneous Approach (ICD-10-PCS; principal; 2021-09-17)
DX: R42 Dizziness and giddiness (principal); R07.9 Chest pain, unspecified
CPT/HCPCS: 36415; 70450-TC; 71046-TC-FY; 80053; 81003; 84484; 85025; 87086; 93005; 93010; 99285-25

== ENCOUNTER 2022-02-16 07:57 | Emergency (ER) | payer OTHER ==
[2022-02-16 08:22] VITALS: BP 143/94; PULSE 58; RESP 16; TEMP 97.8; BMI 32.9
[2022-02-16] MEDS ORDERED: KETOROLAC TROMETHAMINE 30 MG/1 ML VIAL IM ONE (08:46)
[2022-02-16] MEDS ORDERED: KETOROLAC TROMETHAMINE 30 MG/1 ML VIAL ONE (08:55)
[2022-02-16] MEDS ORDERED: DIPHTH,PERTUSS(ACELL),TET 0.5 ML DISP.SYRIN IM ONE ×2 (09:44→09:47)
== END 2022-02-16 09:55 | disposition home or self-care (01) ==
LOC: JER 07:57
PROC: 3E0233Z Introduction of Anti-inflammatory into Muscle, Percutaneous Approach (ICD-10-PCS; principal; 2022-02-16)
PROC: 3E0234Z Introduction of Serum, Toxoid and Vaccine into Muscle, Percutaneous Approach (ICD-10-PCS; 2022-02-16)
DX: M25.522 Pain in left elbow (principal); M25.512 Pain in left shoulder; W19.XXXA Unspecified fall, initial encounter; Y92.9 Unspecified place or not applicable
CPT/HCPCS: 73030-TC-LT-FY; 73070-TC-LT-FY; 90715; 99285-25

== ENCOUNTER 2022-04-09 16:14 | Emergency (ER) | payer OTHER ==
[2022-04-09 16:19] VITALS: BP 129/95; PULSE 73; RESP 18; TEMP 97.9; BMI 25.6
[2022-04-09] MEDS ORDERED: SODIUM CHLORIDE 0.9% 500 ML INFUS.BAG IV ONE (17:18)
[2022-04-09] MEDS ORDERED: METOCLOPRAMIDE HCL INJECTION 10 MG/2 ML VIAL IVPUSH ONE (17:18)
[2022-04-09] MEDS ORDERED: ACETAMINOPHEN 1000 MG/100 ML BAG IVPB ONE (17:18)
[2022-04-09] MEDS ORDERED: METOCLOPRAMIDE HCL INJECTION 10 MG/2 ML VIAL ONE (18:37)
[2022-04-09] MEDS ORDERED: ACETAMINOPHEN INJECTION 100 ML IVPB ONE (18:37)
[2022-04-09 19:22] LABS: BASO % 0.7 % (0-2.0); EOS % 0.5 % (0-4.5); HEMATOCRIT 36.7 % (32.4-45.2); HEMOGLOBIN 12.1 GM/dL (10.7-15.3); LYMPH % 37.5 % (8-40); MCH 27.7 pg (25.7-33.7); MCHC 32.9 g/dl (32.0-36.0); MEAN PLT VOLUME 7.4 fl (7.5-11.1); MONO % 6.7 % (3.8-10.2); NEUT % 54.6 % (42.8-82.8); PLATELET COUNT 313 10^3/uL (134-434); RBC 4.37 M/mm3 (3.60-5.2); RDW 14.2 % (11.6-15.6); WHITE BLOOD COUNT 6.3 K/mm3 (4.0-10.0)
[2022-04-09 19:45] LABS: BLOOD UREA NITROGEN 13.8 mg/dL (7-18); CALCIUM 9.7 mg/dL (8.5-10.1)
[2022-04-09 19:48] LABS: CREATININE 0.6 mg/dL (0.55-1.3)
[2022-04-09 19:50] LABS: BILIRUBIN,TOTAL 0.2 mg/dL (0.2-1); TOT PROT 7.4 g/dl (6.4-8.2)
== END 2022-04-09 20:36 | disposition home or self-care (01) ==
LOC: JER 16:14
PROC: 3E0333Z Introduction of Anti-inflammatory into Peripheral Vein, Percutaneous Approach (ICD-10-PCS; principal; 2022-04-09)
PROC: 3E033GC Introduction of Other Therapeutic Substance into Peripheral Vein, Percutaneous Approach (ICD-10-PCS; 2022-04-09)
DX: G50.0 Trigeminal neuralgia (principal)
CPT/HCPCS: 36415; 80053; 85025; 99284-25

== ENCOUNTER 2023-09-26 04:32 | Day surgery (SDC) | payer OTHER ==
[2023-09-26 10:44] VITALS: TEMP 98.6; BMI 26.5
[2023-09-26 13:01] VITALS: PULSE 74
[2023-09-26 13:22] VITALS: BP 115/60; RESP 18
== END 2023-09-26 14:10 | disposition home or self-care (01) ==
LOC: JASU-ENDO 04:32
PROVIDERS: ATTEND Internal Medicine Gastroenterology
PROC: 0DCQ8ZZ Extirpation of Matter from Anus, Via Natural or Artificial Opening Endoscopic (ICD-10-PCS; principal; 2023-09-26 11:30)
DX: A63.0 Anogenital (venereal) warts (principal)

== ENCOUNTER 2023-09-29 17:51 | Emergency (ER) | payer OTHER ==
[2023-09-29 18:04] VITALS: BP 155/83; PULSE 68; RESP 18; TEMP 98.3; BMI 25.6
[2023-09-29 19:23] LABS: BASO % 0.4 % (0-2.0); EOS % 0.4 % (0-4.5); HEMATOCRIT 36.6 % (32.4-45.2); HEMOGLOBIN 12.1 GM/dL (10.7-15.3); MCH 27.2 pg (25.7-33.7); MCHC 32.9 g/dl (32.0-36.0); MEAN CELL VOLUME 82.8 fl (80-96); MEAN PLT VOLUME 6.8 fl (7.5-11.1); MONO % 5.9 % (3.8-10.2); NEUT % 52.3 % (42.8-82.8); PLATELET COUNT 279 10^3/uL (134-434); RBC 4.43 M/mm3 (3.60-5.2); RDW 14.8 % (11.6-15.6); WHITE BLOOD COUNT 6.1 K/mm3 (4.0-10.0)
[2023-09-29 19:27] LABS: EPI CELLS 6 /uL (0-25.1); HYALINE CASTS 1 /uL (0-3.1); PH,URINE 5.5 (5.0-8.0); URINE APPEARANCE CLEAR; URINE BACTERIA 30 /uL (0-1359); URINE BILIRUBIN NEGATIVE (NEGATIVE); URINE COLOR YELLOW; URINE GLUCOSE (UA) NEGATIVE (NEGATIVE); URINE KETONE NEGATIVE (NEGATIVE); URINE LEUK ESTERASE 1+ (NEGATIVE); URINE NITRITE NEGATIVE (NEGATIVE); URINE PROTEIN NEGATIVE (NEGATIVE); URINE RBC 5 /uL (0-23.9); URINE UROBILINOGEN 0.2 mg/dL (0.2-1.0); URINE WBC 25 /uL (0-25.8)
[2023-09-29 19:46] LABS: POTASSIUM 3.6 mmol/L (3.5-5.1)
[2023-09-29 19:49] LABS: CALCIUM 9.3 mg/dL (8.5-10.1)
[2023-09-29 19:50] LABS: BLOOD UREA NITROGEN 14.3 mg/dL (7-18)
[2023-09-29 19:53] LABS: CREATININE 0.7 mg/dL (0.55-1.3)
[2023-09-29 19:54] LABS: BILIRUBIN,TOTAL 0.3 mg/dL (0.2-1)
[2023-09-29 19:55] LABS: TOT PROT 7.5 g/dl (6.4-8.2)
== END 2023-09-29 20:33 | disposition home or self-care (01) ==
LOC: JER 17:51
DX: K62.5 Hemorrhage of anus and rectum (principal); R10.30 Lower abdominal pain, unspecified
CPT/HCPCS: 36415; 80053; 81003; 85025; 86850; 86900; 86901; 87086; 99283-25

== ENCOUNTER 2024-03-22 18:39 | Emergency (ER) | payer OTHER ==
[2024-03-22 18:54] VITALS: BP 147/78; PULSE 74; RESP 20; TEMP 98.8; BMI 26.3
[2024-03-22 20:10] LABS: BASO % 0.6 % (0-2.0); EOS % 0.4 % (0-4.5); HEMATOCRIT 35.1 % (32.4-45.2); HEMOGLOBIN 11.4 GM/dL (10.7-15.3); LYMPH % 40.9 % (8-40); MCH 27.2 pg (25.7-33.7); MCHC 32.6 g/dl (32.0-36.0); MEAN CELL VOLUME 83.7 fl (80-96); MONO % 7.2 % (3.8-10.2); NEUT % 50.9 % (42.8-82.8); PLATELET COUNT 266 10^3/uL (134-434); RBC 4.19 M/mm3 (3.60-5.2); RDW 14.8 % (11.6-15.6); WHITE BLOOD COUNT 6.7 K/mm3 (4.0-10.0)
[2024-03-22 20:11] LABS: PH,URINE 5.5 (5.0-8.0); URINE APPEARANCE CLEAR; URINE BILIRUBIN NEGATIVE (NEGATIVE); URINE COLOR YELLOW; URINE GLUCOSE (UA) NEGATIVE (NEGATIVE); URINE KETONE NEGATIVE (NEGATIVE); URINE LEUK ESTERASE NEGATIVE (NEGATIVE); URINE NITRITE NEGATIVE (NEGATIVE); URINE PROTEIN NEGATIVE (NEGATIVE); URINE UROBILINOGEN 0.2 mg/dL (0.2-1.0)
[2024-03-22 20:29] LABS: POTASSIUM 4.9 mmol/L (3.5-5.1)
[2024-03-22 20:31] LABS: ALBUMIN 3.7 g/dl (3.4-5.0); CALCIUM 9.2 mg/dL (8.5-10.1)
[2024-03-22 20:34] LABS: CREATININE 0.7 mg/dL (0.55-1.3)
[2024-03-22 20:36] LABS: BILIRUBIN,TOTAL 0.4 mg/dL (0.2-1)
[2024-03-22] MEDS ORDERED: PHENAZOPYRIDINE HCL 100 MG TABLET (FP) ONE (21:39)
[2024-03-22] MEDS ORDERED: CEPHALEXIN MONOHYDRATE 500 MG CAPSULE (UD) ONE (21:39)
[2024-03-22 21:40] LABS: HIV INTERPRETATION NEGATIVE (NEGATIVE)
[2024-03-22] MEDS: CEPHALEXIN MONOHYDRATE 500 MG CAPSULE (UD) PO ONE (21:43)
[2024-03-22] MEDS: PHENAZOPYRIDINE HCL 100 MG TABLET (FP) PO ONE (21:43)
== END 2024-03-22 22:08 | disposition home or self-care (01) ==
LOC: JER 18:39
DX: N32.89 Other specified disorders of bladder (principal); R35.0 Frequency of micturition; R30.0 Dysuria; R10.30 Lower abdominal pain, unspecified
CPT/HCPCS: 36415; 80053; 81003; 85025; 86803; 87086; 87389; 99283-25